=== PATIENT | female | born 1970 | race Caucasian/White ===

== ENCOUNTER 2016-12-06 15:59 | Observation (INO) ==
--- NOTE | 2016-12-06 16:35 | Emergency Department Note ---
Disposition Clinical Impression: Obesity, Right lower quadrant abdominal pain, Gallbladder sludge, Vomiting, Abnormal liver function tests, Ovarian cyst, Lumbar disc disease, Chronic back pain Disposition: Admitted As Inpatient Referrals: Juana Toro MD [Primary Care Provider] - Forms: Work/School Release, ED Satisfaction Letter General Adult HPI - General Chief complaint: ED Abdominal Pain Stated complaint: abd pain Time Seen by Provider: 12/06/16 16:14 Source: patient Limitations: no limitations - History of Present Illness HPI Narrative: 46-year-old female reports emergency department from her primary care physician' s office, there is concern for right lower abdominal pain. The patient is recently been evaluated for gallbladder disease and had testing suggestive of gallbladder sludge without cholecystitis or obstructive pathology. The patient has been having worsening abdominal pain for the last few weeks. On the right side and now lower right side. There was concern for appendicitis so the patient was sent to the ED. There is no history of bulging in the abdomen vaginal discharge or bleeding. The patient is status post hysterectomy. There is no history of april jaundice but she reports her liver function tests were abnormal on her primary care physician's testing. There is no history of flank pain or urinary symptomatology no blood in the urine or previous kidney stones. No chest pain or shortness of breath. There is no history of trauma or rash. Right lower abdominal pain is reported. The patient describes recurrent episodes of nonbloody emesis. She is not known to be anticoagulated. No diarrhea. Last bowel movement within 24 hours no blood. Pain Scale: 10 - Related Data Home Medications Medication Instructions Recorded Confirmed RX: Lisinopril/Hydrochlorothiazide 1 each PO DAILY 05/09/15 12/06/16 [Zestoretic 20-25 mg Tablet] BuPROPion XL (24 HR) [Wellbutrin 150 mg PO DAILY 12/06/16 12/06/16 XL] Diclofenac Sodium [Voltaren] 1 appl TP QID PRN 12/06/16 12/06/16 Gabapentin [Neurontin] 1,200 mg PO QID PRN 12/06/16 12/06/16 Levothyroxine [Synthroid] 150 mcg PO QAM 12/06/16 12/06/16 RX: Cyclobenzaprine HCl 5 mg PO TID PRN 12/06/16 12/06/16 Zolpidem Tartrate [Ambien Cr] 12.5 mg PO HS 12/06/16 12/06/16 Allergies Allergy/AdvReac Type Severity Reaction Status Date / Time hydrocodone AdvReac Vomiting Verified 04/27/15 12:22 All systems ED: reviewed and negative except as stated. Past Medical History - Past Medical History Medical history: Reports: GERD, hypertension, thyroid disease Surgical history: Reports: hysterectomy, thyroidectomy, other Psychiatric history: Reports: depression - Social History Smoking Status: Never smoker Smokeless Tobacco Status: No Alcohol use: Reports: none Drug use: Reports: none Physical Exam - General Limitations: no limitations General appearance: alert, anxious - Head Head exam: atraumatic, normocephalic, normal inspection - Eye Eye exam: Present: normal appearance, PERRL, EOMI. Absent: scleral icterus, conjunctival injection, miosis, mydriasis - ENT ENT exam: normal exam, normal oropharynx, mucous membranes moist, TM's normal bilaterally, normal external ear exam - Neck Neck exam: Present: normal inspection, full ROM, trachea midline. Absent: tenderness - Chest Chest inspection: Present: symmetric chest wall rise. Absent: tenderness - Respiratory Respiratory exam: Present: normal lung sounds bilaterally. Absent: respiratory distress, wheezes, accessory muscle use, prolonged expiratory phase - Cardiovascular Cardiovascular exam: Present: regular rate, normal rhythm, normal heart sounds - Abdominal Exam Abdominal exam: Present: soft, tenderness, normal bowel sounds, tenderness at McBurney's Point. Absent: distention, guarding, rebound, rigidity, trauma, psoas sign, obturator sign, Monge's sign, Rovsing's sign, ascites, pulsatile mass, hernia - Extremities Exam Extremities exam: Present: normal inspection, full ROM, normal capillary refill. Absent: tenderness, pedal edema, joint swelling, calf tenderness - Expanded Lower Extremity Exam Lower leg exam: Absent: Homans' sign Neurovascular/Tendon exam: Present: normal capillary refill. Absent: motor deficit, sensory deficit, tendon deficit, extremity cold to touch, pallor - Back Exam Back exam: Present: normal inspection, full ROM. Absent: tenderness, CVA tenderness (R), CVA tenderness (L), vertebral tenderness - Neurological Exam Neurological exam: Present: alert, oriented X3, CN II-XII intact. Absent: motor sensory deficit - Psychiatric Psychiatric exam: Present: normal affect, anxious - Skin Skin exam: Present: warm, dry, intact, normal color. Absent: rash, cyanosis, diaphoresis, erythema, pallor, mottled Course Vital Signs Temperature 98.8 F 12/06/16 16:03 Pulse Rate 98 12/06/16 16:03 Respiratory Rate 18 12/06/16 16:03 Blood Pressure 121/69 12/06/16 16:03 O2 Sat by Pulse Oximetry 98 12/06/16 16:03 Temperature 98.8 F 12/06/16 16:03 Pulse Rate 79 12/06/16 20:55 Respiratory Rate 18 12/06/16 20:55 Blood Pressure 127/61 12/06/16 20:55 O2 Sat by Pulse Oximetry 98 12/06/16 20:55 Oxygen Delivery Oxygen Delivery Room Air Medical Decision Making - MDM Narrative Medical decision making narrative: The patient has had abdominal pain in the right side of her abdomen persistently for a few months, she has had her gallbladder evaluated which does demonstrate sludge in the gallbladder. Her primary care physician noted abnormal liver function tests from blood work done this last Friday. The patient's AST and ALT were elevated in the 80s and 90s. On today's testing the patient's ALT and AST are more elevated. Acute hepatitis panel was drawn which was negative. Acetaminophen level negative. The patient seems to have developed right lower abdominal pain which as been present since Friday or Friday. There is no evidence of acute appendicitis or other acute process demonstrated on CT scan. She is afebrile and her white count is normal. She described feeling hot and recurrent episodes of recurrent nonbloody emesis. I reviewed the case with the patient and her , they are very uncomfortable going home based on the patient's recurrent pain and apparent worsening with vomiting. IV access was established and pain control medications were given. IV fluid was also ordered. Based on the patient's recurrent pain, reports of vomiting, elevated liver function tests, gallbladder sludge on ultrasound, I suspect the patient may be experiencing biliary colic and her pain is poorly controlled on Neurontin. She reports she does not tolerate Percocet or Vicodin well. She feels that she needs pain control and is uncomfortable with discharge. I discussed the case with the hospitalist who has accepted the patient to their care. The patient be admitted for recurrent vomiting, uncontrolled abdominal pain, gallbladder disease, and right lower abdominal pain. Secondary surgical consult at the hospitalist's discretion. No surgical consult requested per the admitting service at this time. - Lab Data Lab results reviewed: Yes I reviewed the patient's lab results. Result diagrams: 12/06/16 16:45 12/06/16 16:45 Lab Results 12/06/16 12/06/16 12/06/16 Range/Units 16:45 16:45 16:45 WBC 6.7 (4.3-11.1) K/mcL RBC 4.53 (3.82-4.97) M/mcL Hgb 12.9 (11.5-15.4) g/dL Hct 39.0 (35.3-44.9) % MCV 86.1 (83.0-100.0) fL MCH 28.5 (28.0-33.3) pg MCHC 33.1 (31.6-35.5) g/dL RDW 14.6 H (11.5-14.5) % Plt Count 187 (140-400) K/mcL MPV 10.4 (9.4-12.4) fL Immature Gran % 2.1 (0-4) % Seg Neutrophils % 31.4 % Lymphocytes % 58.9 % Monocytes % 4.0 % Eosinophils % 2.4 % Basophils % 1.2 % Neutrophils # 2.1 (1.6-8.9) K/mcL Lymphocytes # 4.0 (0.6-4.6) K/mcL Monocytes # 0.3 (0.0-1.3) K/mcL Eosinophils # 0.2 (0.0-0.6) K/mcL Basophils # 0.1 (0.0-0.2) K/mcL PT (9.4-12.1) Seconds INR APTT (26.0-36.0) Seconds Sodium 138 (136-145) mEq/L Potassium 3.6 (3.5-4.5) mEq/L Chloride 101 (98-109) mEq/L Carbon Dioxide 28 (19-29) mEq/L BUN 9 (7-20) mg/dL Creatinine 0.89 (0.57-1.11) mg/dL Est GFR ( Amer) > 60 (> 60) Est GFR (Non-Af Amer) > 60 (> 60) BUN/Creatinine Ratio 10 (6-26) Glucose 119 H (70-99) mg/dL Calculated Osmolality 286 (280-300) Lactic Acid 1.2 (0.5-2.2) mmol/L Calcium 8.8 (8.6-10.8) mg/dL Total Bilirubin 0.8 (0.2-1.2) mg/dL Direct Bilirubin 0.4 (0.0-0.5) mg/dL Indirect Bilirubin 0.4 (0.0-1.2) mg/dL AST 159 H (5-34) Units/L ALT 194 H (0-55) Units/L Alkaline Phosphatase 110 (38-126) Units/L C-Reactive Protein 33 H (Less than 5) mg/L Serum Total Protein 6.5 (6.0-8.3) g/dL Albumin 3.3 L (3.5-5.0) g/dL Globulin 3.2 (2.4-3.5) g/dL Albumin/Globulin Ratio 1.0 L (1.1-2.2) Lipase 46 (8-78) Units/L Urine Color (Yellow) Urine Clarity (Clear) Urine pH (5.0-8.0) pH Units Ur Specific [place] (1.010-1.025) Urine Protein (Neg-Trace) mg/dL Urine Glucose (UA) (Normal) mg/dL Urine Ketones (Negative) mg/dL Urine Blood (Negative) Urine Nitrite (Negative) Urine Bilirubin (Negative) Urine Urobilinogen (Normal) mg/dL Ur Leukocyte Esterase (Negative) Urine Microscopic RBC (0-3) per hpf Urine Microscopic WBC (0-3) per hpf Ur Squamous Epith Cells (None-Few) per lpf Urine Bacteria (None-Few) per hpf Hyaline Casts (None-Few) per lpf Ur Culture Indicated? (NO) Acetaminophen < 1.0 L (10-30) mcg/mL Hepatitis A IgM Ab (Nonreactive) Hep Bs Antigen (Nonreactive) Hep B Core IgM Ab (Nonreactive) Hepatitis C Ab Screen (Nonreactive) 12/06/16 12/06/16 12/06/16 Range/Units 16:45 16:45 18:06 WBC (4.3-11.1) K/mcL RBC (3.82-4.97) M/mcL Hgb (11.5-15.4) g/dL Hct (35.3-44.9) % MCV (83.0-100.0) fL MCH (28.0-33.3) pg MCHC (31.6-35.5) g/dL RDW (11.5-14.5) % Plt Count (140-400) K/mcL MPV (9.4-12.4) fL Immature Gran % (0-4) % Seg Neutrophils % % Lymphocytes % % Monocytes % % Eosinophils % % Basophils % % Neutrophils # (1.6-8.9) K/mcL Lymphocytes # (0.6-4.6) K/mcL Monocytes # (0.0-1.3) K/mcL Eosinophils # (0.0-0.6) K/mcL Basophils # (0.0-0.2) K/mcL PT 12.4 H (9.4-12.1) Seconds INR 1.1 APTT 30.9 (26.0-36.0) Seconds Sodium (136-145) mEq/L Potassium (3.5-4.5) mEq/L Chloride (98-109) mEq/L Carbon Dioxide (19-29) mEq/L BUN (7-20) mg/dL Creatinine (0.57-1.11) mg/dL Est GFR ( Amer) (> 60) Est GFR (Non-Af Amer) (> 60) BUN/Creatinine Ratio (6-26) Glucose (70-99) mg/dL Calculated Osmolality (280-300) Lactic Acid (0.5-2.2) mmol/L Calcium (8.6-10.8) mg/dL Total Bilirubin (0.2-1.2) mg/dL Direct Bilirubin (0.0-0.5) mg/dL Indirect Bilirubin (0.0-1.2) mg/dL AST (5-34) Units/L ALT (0-55) Units/L Alkaline Phosphatase (38-126) Units/L C-Reactive Protein (Less than 5) mg/L Serum Total Protein (6.0-8.3) g/dL Albumin (3.5-5.0) g/dL Globulin (2.4-3.5) g/dL Albumin/Globulin Ratio (1.1-2.2) Lipase (8-78) Units/L Urine Color Yellow (Yellow) Urine Clarity Cloudy A (Clear) Urine pH 6.0 (5.0-8.0) pH Units Ur Specific [place] 1.022 (1.010-1.025) Urine Protein Negative (Neg-Trace) mg/dL Urine Glucose (UA) Normal (Normal) mg/dL Urine Ketones Negative (Negative) mg/dL Urine Blood Negative (Negative) Urine Nitrite Negative (Negative) Urine Bilirubin Negative (Negative) Urine Urobilinogen Normal (Normal) mg/dL Ur Leukocyte Esterase Negative (Negative) Urine Microscopic RBC 0-3 (0-3) per hpf Urine Microscopic WBC 0-3 (0-3) per hpf Ur Squamous Epith Cells Many H (None-Few) per lpf Urine Bacteria None Seen (None-Few) per hpf Hyaline Casts None Seen (None-Few) per lpf Ur Culture Indicated? NO (NO) Acetaminophen (10-30) mcg/mL Hepatitis A IgM Ab Nonreactive (Nonreactive) Hep Bs Antigen Nonreactive (Nonreactive) Hep B Core IgM Ab Nonreactive (Nonreactive) Hepatitis C Ab Screen Nonreactive (Nonreactive) - Radiology Data Radiology results reviewed: Yes I reviewed the patient's radiology results.
[2016-12-06] MEDS ORDERED: *HR* HYDROmorphone (PF) 1 MG/ML SYRINGE IVP ONE ×2 (16:43→21:23)
[2016-12-06] MEDS ORDERED: Ondansetron 4 MG/2 ML VIAL IVP ONE (16:43)
[2016-12-06] MEDS ORDERED: 0.9 % Sodium Chloride 1,000 ML IVC ONE (16:43)
[2016-12-06 17:07] LABS: Alanine Aminotransferase 194 Units/L (0-55); Albumin 3.3 g/dL (3.5-5.0); Alkaline Phosphatase 110 Units/L (38-126); Aspartate Amino Transferase 159 Units/L (5-34); BUN/Creatinine Ratio 10 (6-26); Basophils # 0.1 K/mcL (0.0-0.2); Basophils % 1.2 %; Bilirubin,Direct 0.4 mg/dL (0.0-0.5); Bilirubin,Indirect 0.4 mg/dL (0.0-1.2); Bilirubin,Total 0.8 mg/dL (0.2-1.2); Blood Urea Nitrogen 9 mg/dL (7-20); C-Reactive Protein 33 mg/L (Less than 5); Calcium 8.8 mg/dL (8.6-10.8); Carbon Dioxide 28 mEq/L (19-29); Chloride 101 mEq/L (98-109); Eosinophils # 0.2 K/mcL (0.0-0.6); Eosinophils % 2.4 %; Globulin 3.2 g/dL (2.4-3.5); Glucose 119 mg/dL (70-99); Hemoglobin 12.9 g/dL (11.5-15.4); Immature Granulocytes % 2.1 % (0-4); Lipase 46 Units/L (8-78); Lymphocytes % 58.9 %; Mean Corpuscular HGB Conc 33.1 g/dL (31.6-35.5); Mean Corpuscular Hemoglobin 28.5 pg (28.0-33.3); Mean Corpuscular Volume 86.1 fL (83.0-100.0); Mean Platelet Volume 10.4 fL (9.4-12.4); Monocytes # 0.3 K/mcL (0.0-1.3); Neutrophils # 2.1 K/mcL (1.6-8.9); Osmolality,Calculated 286 (280-300); Platelet Count 187 K/mcL (140-400); Potassium 3.6 mEq/L (3.5-4.5); Red Blood Count 4.53 M/mcL (3.82-4.97); Red Cell Distribution Width 14.6 % (11.5-14.5); Segmented Neutrophils % 31.4 %; Sodium 138 mEq/L (136-145); Total Protein 6.5 g/dL (6.0-8.3); eGFR For African Americans > 60 (> 60); eGFR For Non-African Americans > 60 (> 60)
[2016-12-06 17:12] LABS: INR 1.1; Prothrombin Time 12.4 Seconds (9.4-12.1)
[2016-12-06 17:15] LABS: Activated Partial Thrombo Time 30.9 Seconds (26.0-36.0)
[2016-12-06 18:11] LABS: Bilirubin,Urine Negative (Negative); Blood,Urine Negative (Negative); Clarity,Urine Cloudy (Clear); Color,Urine Yellow (Yellow); Glucose,Urine (UA) Normal (Normal); Ketones,Urine Negative (Negative); Leukocyte Esterase,Urine Negative (Negative); Nitrite,Urine Negative (Negative); Protein,Urine Negative (Neg-Trace); Specific Gravity,Urine 1.022 (1.010-1.025); Urobilinogen,Urine Normal (Normal)
[2016-12-06 18:14] LABS: Bacteria,Urine None Seen per hpf (None-Few); Hyaline Casts,Urine None Seen per lpf (None-Few); RBC,Urine 0-3 per hpf (0-3); Squamous Epithelial Cell,Urine Many per lpf (None-Few); WBC,Urine 0-3 per hpf (0-3)
[2016-12-06 18:55] LABS: Acetaminophen < 1.0 mcg/mL (10-30)
[2016-12-06 19:20] LABS: Hepatitis A Antibody IgM Nonreactive (Nonreactive); Hepatitis B Core IgM Nonreactive (Nonreactive); Hepatitis B Surface Antigen Nonreactive (Nonreactive); Hepatitis C Virus Antibody Nonreactive (Nonreactive)
--- NOTE | 2016-12-06 22:07 | Internal Med History&Physical ---
Date of Encounter: 12/06/16 Time of Encounter: 22:07 Assessment and Plan (1) Intractable abdominal pain Current visit: Yes Status: Acute patient presents with worrisome symptoms but history and physical exam as well as CT report does not suggest appendicitis, she still however has pain yet unexplained, it could be diverticulitis vs ovarian cysts etc, we will admit for supportive management with IVF, IV pain medications, bowel rest,, should her symptoms persist we will get GI to weigh in otherwise she will benefit from GI followup as outpatient upon discharge home (2) Abnormal liver function tests Current visit: Yes Status: Acute related to fatty liver, she has been advised on weight loss and dietary modification, (3) Fatty liver Current visit: Yes Status: Chronic from obesity, she has been counseled on weight loss and diet (4) Chronic back pain Current visit: Yes Status: Chronic this is from trauma she experienced some years ago and has undergone 3 back surgeries so far, we will manage conservatively Qualifiers: Back pain location: low back pain Back pain laterality: bilateral Sciatica presence: without sciatica Qualified Code(s): M54.5 - Low back pain; G89.29 - Other chronic pain (5) Morbid obesity with BMI of 45.0-49.9, adult Current visit: Yes Status: Chronic counseled on weight loss and diet Internal Medicine - H&P: HPI Chief complaint: right lower abdominal pain Admitted From: Emergency Dept Plans for Post Hospital Care: Home History of present illness: Ms. Drake is a 46 year old female with a history of GERD and morbid obesity who comes in as a referral from her PCP for intractable right lower abdominal pain. She reports that she has had intermittent abdominal pain ongoing for about 2 months now but for the past one week it has gotten worse. The pain is located in the right lower quadrant, it is dull achy and constant with episodes of sharp pain that is 10/10 in severity that she has to bend over due to its severity. She reports an associated nausea and vomiting and inability to eat. Her appetite however has been normal. She is just not keeping food down. She also has subjective fever and chills. She reached out to her PCP who ordered LFT 's which were elevated and, she reviewed that and in addition to her right lower quadrant pain she was sent here for assessment regarding acute appendicitis. Her CT of abdomen was unremarkable for appendicitis but reported fatty liver. Her symptoms are uncontrolled so she is being admitted for control. She currently denies diarrhea but had loose stools some days ago. She had colonoscopy a couple of years ago and there was no mention of any concerning findings. Past Med Surg Social Fam HX - Past Medical History Source: patient, old records reviewed Medical history: GERD, hypertension, thyroid disease Psychiatric history: depression - Past Surgical History Surgical History: hysterectomy, thyroidectomy, other (L5-S1 laminectomy with fusion, she reports 3 back surgeries, thyroidectomy, shoulder surgery, left breast biopsy, lumpectomy, ) - Social History Smoking Status: Never smoker Smokeless Tobacco Status: No Alcohol use: none Drug use: none - Family History Mother Living Status: Still Living Hx Family Cardiac Disorders: Yes Father Living Status: Still Living Hx Family Cardiac Disorders: Yes Hx Family Cancer: Yes Hx Family Endocrine Disorder: Yes (dm) - Additional Family History Additional family history: father has cancer, heart problems, and DM, mother has heart problems, no family history of GI problems Internal Medicine - H&P: Meds Lisinopril/Hydrochlorothiazide [Zestoretic 20-25 mg Tablet] 1 each PO DAILY [History] BuPROPion XL (24 HR) [Wellbutrin XL] 150 mg PO DAILY 12/06/16 [History] Cyclobenzaprine HCl 5 mg PO TID PRN 12/06/16 [History] Diclofenac Sodium [Voltaren] 1 appl TP QID PRN 12/06/16 [History] Gabapentin [Neurontin] 1,200 mg PO QID PRN 12/06/16 [History] Levothyroxine [Synthroid] 150 mcg PO QAM 12/06/16 [History] Zolpidem Tartrate [Ambien Cr] 12.5 mg PO HS 12/06/16 [History] Allergies hydrocodone Adverse Reaction (Verified 04/27/15 12:22) Vomiting All Systems PM: A 10-system review of systems was performed and is negative for pertinent findings except as documented above in the HPI. - Constitutional Vitals: Temp Pulse Resp BP Pulse Ox 98.8 F 79 18 125/55 98 12/06/16 16:03 12/06/16 20:55 12/06/16 21:51 12/06/16 21:51 12/06/16 20:55 PHYSICAL EXAMINATION: GENERAL: Adult female, lying in bed in mild pain, Alert, morbidly obese looking HEENT: NC/AT, EOMI, PERRLA, anicteric sclera, normal conjunctiva, supple, clear nares, dry mucous membranes, clear oropharynx, RESP: lungs are clear to auscultation bilaterally, good AE bilaterally, No crackles or wheeze CARDIO: Normal hearts sounds; S1 and 2, RRR with no murmurs, no JVD, no ankle edema GI: Soft, full, diffusely tender abdomen but worse in the right lower quadrant with no guarding, no organomegaly felt, normal bowel sounds heard MUSCULOSKELETAL: grossly normal movements bilaterally, no deformities noted, no calf tenderness NEUROLOGIC: CN 2-12 intact grossly. No motor/sensory deficit appreciated, PSYCHIATRY: AAO x 3. Mood is fair, SKIN: no skin rash noted but face is flushed Internal Med - H&P Results - Labs CBC & Chem 7: 12/07/16 03:46 12/07/16 03:46 - Diagnostic Studies CT scan - abdomen Status: image reviewed by me
[2016-12-06] MEDS ORDERED: Ondansetron 4 MG/2 ML VIAL IVP PRN (22:36)
[2016-12-06] MEDS ORDERED: Naloxone 0.4 MG/ML INJ IVP PRN (22:36)
[2016-12-06] MEDS: Ringers Solution, Lactated 1,000 ML IVC SCH (23:28)
[2016-12-07] MEDS: Gabapentin 400 MG CAPSULE PO PRN ×3 (00:15→17:12)
[2016-12-07 04:01] LABS: Basophils # 0.1 K/mcL (0.0-0.2); Basophils % 0.8 %; Eosinophils # 0.2 K/mcL (0.0-0.6); Eosinophils % 2.4 %; Hematocrit 35.5 % (35.3-44.9); Hemoglobin 11.4 g/dL (11.5-15.4); Immature Granulocytes % 2.4 % (0-4); Lymphocytes # 4.4 K/mcL (0.6-4.6); Lymphocytes % 60.8 %; Mean Corpuscular HGB Conc 32.1 g/dL (31.6-35.5); Mean Corpuscular Hemoglobin 27.5 pg (28.0-33.3); Mean Corpuscular Volume 85.5 fL (83.0-100.0); Mean Platelet Volume 10.2 fL (9.4-12.4); Monocytes # 0.3 K/mcL (0.0-1.3); Monocytes % 3.5 %; Neutrophils # 2.2 K/mcL (1.6-8.9); Platelet Count 159 K/mcL (140-400); Red Blood Count 4.15 M/mcL (3.82-4.97); Red Cell Distribution Width 14.7 % (11.5-14.5); Segmented Neutrophils % 30.1 %
[2016-12-07 04:19] LABS: BUN/Creatinine Ratio 11 (6-26); Blood Urea Nitrogen 9 mg/dL (7-20); Carbon Dioxide 28 mEq/L (19-29); Chloride 101 mEq/L (98-109); Glucose 100 mg/dL (70-99); Osmolality,Calculated 279 (280-300); Potassium 3.4 mEq/L (3.5-4.5); Sodium 135 mEq/L (136-145); eGFR For African Americans > 60 (> 60); eGFR For Non-African Americans > 60 (> 60)
[2016-12-07 04:20] LABS: Alanine Aminotransferase 178 Units/L (0-55); Albumin 2.8 g/dL (3.5-5.0); Albumin/Globulin Ratio 0.9 (1.1-2.2); Alkaline Phosphatase 100 Units/L (38-126); Aspartate Amino Transferase 141 Units/L (5-34); Bilirubin,Total 1.1 mg/dL (0.2-1.2); Calcium 8.2 mg/dL (8.6-10.8); Magnesium 1.8 mg/dL (1.6-2.6); Phosphorous 2.7 mg/dL (2.3-4.7); Total Protein 5.8 g/dL (6.0-8.3)
[2016-12-07 04:28] LABS: Large Platelets Present (Not Present); Platelet Estimate Normal (Normal); Reactive Lymphocytes Present (Not Present)
[2016-12-07] MEDS: *HR* Morphine 2 MG/ML SYRINGE IVP PRN ×5 (05:52→23:39)
[2016-12-07] MEDS: Ringers Solution, Lactated 1,000 ML IVC SCH (08:17)
[2016-12-07] MEDS: BuPROPion XL (24 HR) 150 MG TABLET PO SCH (08:17)
[2016-12-07] MEDS ORDERED: *HR* Morphine 2 MG/ML SYRINGE IVP PRN (17:01)
--- NOTE | 2016-12-07 17:06 | Internal Med Progress Note ---
Date of Encounter: 12/07/16 Time of Encounter: 10:45 - Assessment and plan (1) Right lower quadrant abdominal pain Current Visit: Yes Status: Acute Assessment and plan: Patient was admitted for intractable abdominal pain. Pain is located right lower quadrant with associated nausea and vomiting. Has had multiple tests run on abdominal pain over the last 2 months. She said pain was worse since why she presented to the emergency department. Patient had CT abdomen on admission. No acute abnormalities and incidental findings that require no follow-up. Incidental findings include moderate hepatomegaly, diffuse hepatic steatosis, left ovarian cyst measuring 3 cm, mildly enlarged mesenteric lymph nodes likely reactive. There is also noted a posterior fusion L5-S1 without complication. Appendix were found to be normal, as was the right ovary. Patient had HIDA scan done in October that showed no bladder ejection fraction 92 % no findings of acute or chronic cholecystitis. She had an abdominal right upper quadrant ultrasound done in October but also showed sludge in the gallbladder and diffuse fatty infiltration of the liver. I spoke with Dr. Cortés who agrees that findings are not acute at this time. I will continue to hydrate the patient and provide pain control and most likely discharge patient in the morning. (2) Obesity Current Visit: Yes Status: Chronic Assessment and plan: Chronic. Lifestyle changes. She denied did discuss weight loss to help with fatty liver. She verbalized understanding. Qualifiers: Obesity type: due to excess calories Obesity severity: morbid Qualified Code(s): E66.01 - Morbid (severe) obesity due to excess calories (3) Gallbladder sludge Current Visit: Yes Status: Acute Assessment and plan: Per ultrasound in October,. (4) Abnormal liver function tests Current Visit: Yes Status: Acute Assessment and plan: Transaminases are elevated. With continued hydration they are decreasing. Lipase is within normal limits. (5) Ovarian cyst Current Visit: Yes Status: Acute Assessment and plan: 3 cm ovarian cyst left ovary found on CAT scan last night needs no follow-up. Qualifiers: Laterality: left Qualified Code(s): N83.202 - Unspecified ovarian cyst, left side - Subjective Interval history: Patient resting quietly and darkened room, has been on Caltrate and room. Patient reports right lower quadrant pain. Patient has had abdominal pain for several months and has multiple tests done. She was admitted with concerning symptoms for appendicitis, however CT does not show appendicitis, patient has no uterus, she does have a 3 cm left ovarian cyst but pain is right lower quadrant. She is being treated with IV fluids, IV pain medication, clear liquid diets. I did briefly speak with Dr. Cortés on the phone regarding this patient her situation. He recommends that she follow-up outpatient in the office. I will continue to hydrate and treat pain symptoms overnight. I discussed patient going home in the morning she is fine with that. - Constitutional Vitals: Temp Pulse Resp BP Pulse Ox 99.0 F 75 16 105/72 95 12/07/16 15:26 12/07/16 15:26 12/07/16 15:26 12/07/16 15:26 12/07/16 15:26 General appearance: Present: cooperative, morbidly obese, pleasant, answers questions appropriately - Head Head exam: Present: normal inspection - Eye Eye exam: Present: normal appearance, conjuntiva pink - ENT ENT exam: Present: mucous membranes moist, normal exam - Neck Neck exam general surgery: Present: normal inspection. Absent: lymphadenopathy , tenderness - Respiratory Respiratory exam: Present: CTAB. Absent: chest wall tenderness, rales, respiratory distress, rhonchi, stridor, wheezes - Cardiovascular Cardiovascular exam: Present: RRR, +S1, +S2. Absent: diastolic murmur, systolic murmur - GI/Abdominal GI/Abdominal exam: Present: firm, hyperactive bowel sounds, soft, tenderness. Absent: distended, hepatomegaly, pulsatile mass - Extremities Exam Extremities exam: Present: normal capillary refill, normal inspection, pedal edema, warm, radial pulses palpable and symetrical. Absent: tenderness - Back Exam Back exam: Absent: CVA tenderness (L), CVA tenderness (R) - Neurological Exam Neurological exam: Present: alert, oriented X3, no focal deficits, strengths equal and symetr throughout. Absent: facial droop, speech deficit Internal Medicine: Result - Labs CBC & Chem 7: 12/07/16 03:46 12/07/16 03:46 Labs: Short CBC 12/07/16 Range/Units 03:46 WBC 7.2 (4.3-11.1) K/mcL Hgb 11.4 L D (11.5-15.4) g/dL Hct 35.5 (35.3-44.9) % Plt Count 159 (140-400) K/mcL Neutrophils # 2.2 (1.6-8.9) K/mcL BMP 12/07/16 03:46 Sodium 135 L Potassium 3.4 L Chloride 101 Carbon Dioxide 28 BUN 9 Creatinine 0.85 Glucose 100 H Calcium 8.2 L Liver Function 12/07/16 Range/Units 03:46 Total Bilirubin 1.1 (0.2-1.2) mg/dL AST 141 H (5-34) Units/L ALT 178 H (0-55) Units/L Alkaline Phosphatase 100 (38-126) Units/L Albumin 2.8 L (3.5-5.0) g/dL - ABG Interpretation ABG results: PT/INR, D-dimer PT 12.4 Seconds (9.4-12.1) H 12/06/16 16:45 Consult Discharge Plan - Plan Referrals: Juana Toro MD [Primary Care Provider] -
--- NOTE | 2016-12-07 23:07 | Event Note ---
Date of Encounter: 12/07/16 Time of Encounter: 23:05 Patient spiked a fever of 102.9. She is here for gallbladder disease and ovarian cyst. I have ordered blood cultures, oral acetaminophen. We will start antibiotic treatment with Zosyn.
[2016-12-07] MEDS: 0.9 % Sodium Chloride 1,000 ML IVC SCH (23:08)
[2016-12-07] MEDS: Acetaminophen 325 MG TABLET PO PRN (23:13)
[2016-12-07] MEDS: Piperacillin/Tazobactam 3.375 GM in D5% in Water (Mini-Bag+) 100 ML IVPB SCH (23:39)
[2016-12-08 03:52] LABS: Basophils # 0.1 K/mcL (0.0-0.2); Basophils % 0.7 %; Eosinophils # 0.2 K/mcL (0.0-0.6); Hematocrit 37.6 % (35.3-44.9); Hemoglobin 12.3 g/dL (11.5-15.4); Immature Granulocytes % 4.5 % (0-4); Lymphocytes % 59.1 %; Mean Corpuscular HGB Conc 32.7 g/dL (31.6-35.5); Mean Corpuscular Hemoglobin 28.3 pg (28.0-33.3); Mean Corpuscular Volume 86.4 fL (83.0-100.0); Mean Platelet Volume 10.3 fL (9.4-12.4); Monocytes # 0.2 K/mcL (0.0-1.3); Monocytes % 2.9 %; Neutrophils # 2.3 K/mcL (1.6-8.9); Platelet Count 156 K/mcL (140-400); Red Blood Count 4.35 M/mcL (3.82-4.97); Segmented Neutrophils % 30.8 %
[2016-12-08 03:59] LABS: Lymphocytes # 4.4 K/mcL (0.6-4.6)
[2016-12-08 04:07] LABS: Alanine Aminotransferase 204 Units/L (0-55); Aspartate Amino Transferase 172 Units/L (5-34); BUN/Creatinine Ratio 10 (6-26); Blood Urea Nitrogen 9 mg/dL (7-20); Calcium 8.6 mg/dL (8.6-10.8); Carbon Dioxide 27 mEq/L (19-29); Chloride 102 mEq/L (98-109); Glucose 102 mg/dL (70-99); Osmolality,Calculated 283 (280-300); Potassium 3.6 mEq/L (3.5-4.5); Sodium 137 mEq/L (136-145); eGFR For African Americans > 60 (> 60); eGFR For Non-African Americans > 60 (> 60)
[2016-12-08 04:19] LABS: Platelet Estimate Normal (Normal); Reactive Lymphocytes Present (Not Present)
[2016-12-08] MEDS: Piperacillin/Tazobactam 3.375 GM in D5% in Water (Mini-Bag+) 100 ML IVPB SCH ×2 (08:22→15:03)
[2016-12-08] MEDS: *HR* Morphine 2 MG/ML SYRINGE IVP PRN ×4 (08:22→22:11)
[2016-12-08] MEDS: BuPROPion XL (24 HR) 150 MG TABLET PO SCH (08:24)
[2016-12-08] MEDS: Gabapentin 400 MG CAPSULE PO PRN ×3 (08:24→21:00)
[2016-12-08 09:47] LABS: Chol/HDL Ratio 6.8 (0-4.9); Cholesterol 142 mg/dL (< 200); HDL Cholesterol 21 mg/dL (40-59)
[2016-12-08 11:13] LABS: % Iron Saturation 18 % (15-50); Iron 44 mcg/dL (50-170); Transferrin 174 mg/dL (180-382)
[2016-12-08 11:25] LABS: LDL Cholesterol,Calculated 72 mg/dL (0-99); Triglycerides 246 mg/dL (< 150)
--- NOTE | 2016-12-08 14:16 | Internal Med Progress Note ---
Date of Encounter: 12/08/16 Time of Encounter: 09:35 - Assessment and plan (1) Right lower quadrant abdominal pain Current Visit: Yes Status: Acute Assessment and plan: Patient continues to have right lower quadrant pain and rates it 10 out of 10. She says she has not had a bowel movement due to anorexia and being on a clear liquid diet. Her abdomen is soft and tender in right lower and right mid abdomen. I have ordered an abdominal ultrasound and a urine. Nurse reports today that year and is pink tinged. Patient has had a hysterectomy so we will reevaluate the urine. Initial urine was negative. Ultrasound will not be done on Friday. I also have consulted GI. Continue IV pain medication Continue IV hydration Clear liquid diet Anti-emetics as needed GI consult Abdominal ultrasound and urine pending (2) Obesity Current Visit: Yes Status: Chronic Assessment and plan: Chronic. Lifestyle changes. Qualifiers: Obesity type: due to excess calories Obesity severity: morbid Qualified Code(s): E66.01 - Morbid (severe) obesity due to excess calories (3) Gallbladder sludge Current Visit: Yes Status: Acute Assessment and plan: Per ultrasound in October,. (4) Abnormal liver function tests Current Visit: Yes Status: Acute Assessment and plan: Transaminases are elevated again today. AST 174, ALP 204. Patient does have fatty liver per right upper quadrant ultrasound in October,. (5) Ovarian cyst Current Visit: Yes Status: Acute Assessment and plan: 3 cm ovarian cyst left ovary found on CAT scan last night needs no follow-up. Qualifiers: Laterality: left Qualified Code(s): N83.202 - Unspecified ovarian cyst, left side (6) NAFLD (nonalcoholic fatty liver disease) Current Visit: Yes Status: Acute Assessment and plan: Right upper quadrant ultrasound done October 30 showed diffuse fatty liver infiltration. Transaminases are elevated, increased overnight. CT abdomen on December 06 showed moderate hepatomegaly and diffuse hepatic steatosis. Patient had a HIDA scan on November 08 that showed no findings of acute or chronic cholecystitis. She did have sludge. Today patient has right upper quadrant tenderness. Patient denies excessive alcohol intake. She says she normally only has drinks every 2 years when she and her travel outside the country. She denies a periods in her life when she drank excessively. Monitor labs in the a.m. Abdominal ultrasound GI consult (7) Metabolic syndrome Current Visit: Yes Status: Acute Assessment and plan: Patient has central obesity, with triglycerides at 246, HDL cholesterol 21 and fasting blood glucoses greater than 100. I have ordered an A1c for morning. - Time Spent With Patient less than 15 minutes - Subjective Interval history: Patient resting quietly and darkened room, also sleeping in room. Patient continues to report right lower quadrant pain that she said is unchanged from yesterday. She said it is not getting any better. She still getting a clear liquid diet, but did eat part of a sandwich last night with some increased pain to right lower quadrant. She said she just did not feel like eating despite being hungry.. She says she has no appetite. 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 Today she has right upper quadrant tenderness that she did not have yesterday. transaminases have elevated again today. I will put in a GI consult. - Constitutional Vitals: Temp Pulse Resp BP Pulse Ox 99.0 F 80 16 95/59 91 12/08/16 11:36 12/08/16 11:36 12/08/16 11:36 12/08/16 11:36 12/08/16 11:36 General appearance: Present: cooperative, morbidly obese, pleasant, answers questions appropriately Internal Medicine: Result - Labs CBC & Chem 7: 12/08/16 03:36 12/08/16 03:36 Labs: Short CBC 12/08/16 Range/Units 03:36 WBC 7.5 (4.3-11.1) K/mcL Hgb 12.3 (11.5-15.4) g/dL Hct 37.6 (35.3-44.9) % Plt Count 156 (140-400) K/mcL Neutrophils # 2.3 (1.6-8.9) K/mcL BMP 12/08/16 03:36 Sodium 137 Potassium 3.6 Chloride 102 Carbon Dioxide 27 BUN 9 Creatinine 0.90 Glucose 102 H Calcium 8.6 Liver Function 12/08/16 Range/Units 03:36 AST 172 H (5-34) Units/L ALT 204 H (0-55) Units/L - ABG Interpretation ABG results: PT/INR, D-dimer PT 12.4 Seconds (9.4-12.1) H 12/06/16 16:45 Consult Discharge Plan - Plan Referrals: Juana Toro MD [Primary Care Provider] -
[2016-12-08 15:10] LABS: Bilirubin,Urine Negative (Negative); Blood,Urine Negative (Negative); Clarity,Urine Clear (Clear); Color,Urine Yellow (Yellow); Glucose,Urine (UA) Normal (Normal); Ketones,Urine Negative (Negative); Leukocyte Esterase,Urine Negative (Negative); Nitrite,Urine Negative (Negative); PH,Urine 6.5 pH Units (5.0-8.0); Protein,Urine Negative (Neg-Trace); Specific Gravity,Urine 1.018 (1.010-1.025)
[2016-12-08] MEDS: 0.9 % Sodium Chloride 1,000 ML IVC SCH ×2 (19:42→23:21)
[2016-12-08] MEDS ORDERED: 0.9 % Sodium Chloride 1,000 ML IVC ONE (23:55)
[2016-12-09] MEDS: Piperacillin/Tazobactam 3.375 GM in D5% in Water (Mini-Bag+) 100 ML IVPB SCH ×4 (00:04→22:38)
[2016-12-09] MEDS: 0.9 % Sodium Chloride 1,000 ML IVC SCH (00:07)
[2016-12-09] MEDS: Acetaminophen 325 MG TABLET PO PRN (00:12)
[2016-12-09 00:42] LABS: Hematocrit 37.2 % (35.3-44.9); Immature Platelets 4.2 % (1.1-6.1); Mean Corpuscular HGB Conc 32.3 g/dL (31.6-35.5); Mean Corpuscular Volume 86.7 fL (83.0-100.0); Mean Platelet Volume 10.1 fL (9.4-12.4); Platelet Count 175 K/mcL (140-400); Red Blood Count 4.29 M/mcL (3.82-4.97); Red Cell Distribution Width 15.1 % (11.5-14.5)
[2016-12-09 00:57] LABS: Alanine Aminotransferase 191 Units/L (0-55); Albumin 2.8 g/dL (3.5-5.0); Alkaline Phosphatase 113 Units/L (38-126); Aspartate Amino Transferase 145 Units/L (5-34); BUN/Creatinine Ratio 8 (6-26); Bilirubin,Direct 0.9 mg/dL (0.0-0.5); Bilirubin,Indirect 0.4 mg/dL (0.0-1.2); Bilirubin,Total 1.3 mg/dL (0.2-1.2); Blood Urea Nitrogen 8 mg/dL (7-20); Calcium 8.1 mg/dL (8.6-10.8); Carbon Dioxide 27 mEq/L (19-29); Chloride 101 mEq/L (98-109); Globulin 2.9 g/dL (2.4-3.5); Glucose 97 mg/dL (70-99); Osmolality,Calculated 280 (280-300); Potassium 3.5 mEq/L (3.5-4.5); Sodium 136 mEq/L (136-145); Total Protein 5.7 g/dL (6.0-8.3); eGFR For African Americans > 60 (> 60); eGFR For Non-African Americans > 60 (> 60)
[2016-12-09 01:06] LABS: Hemoglobin A1C 5.7 %
[2016-12-09 01:29] LABS: Eosinophils # 0.1 K/mcL (0.0-0.6); Lymphocytes # 3.9 K/mcL (0.6-4.6); Monocytes # 0.4 K/mcL (0.0-1.3); Neutrophils # 2.5 K/mcL (1.6-8.9); Platelet Estimate Normal (Normal); Reactive Lymphocytes Present (Not Present)
[2016-12-09] MEDS ORDERED: 0.9 % Sodium Chloride 1,000 ML IVC ONE (04:58)
[2016-12-09] MEDS: Gabapentin 400 MG CAPSULE PO PRN ×4 (06:53→22:37)
[2016-12-09] MEDS ORDERED: 0.9 % Sodium Chloride 500 ML IVC ONE (07:40)
[2016-12-09] MEDS ORDERED: 0.9 % Sodium Chloride 1,000 ML IVC SCH (07:41)
[2016-12-09] MEDS: BuPROPion XL (24 HR) 150 MG TABLET PO SCH (07:57)
--- NOTE | 2016-12-09 13:48 | Internal Med Progress Note ---
Date of Encounter: 12/09/16 Time of Encounter: 13:46 - Assessment and plan (1) Gallbladder sludge Current Visit: Yes Status: Acute Assessment and plan: patient admitted with intractable RLQ abdominal pain associated with nausea and vomiting; CT abdomen/pelvis showed no acute abnormality; recent RUQ U/S showed gallbladder sludge and biliary scan was normal. Surgery has been consulted due to persistent symptoms associated with fever spikes, bandemia of 10% today with episodes of hypotension overnight, concerning for sepsis; lactic acid noted to be normal; will obtain chest XRay. Patient got multiple IV fluid boluses and BP improved now; Continue IV hydration with pain control with PRN IV Morphine; diet as tolerated for now with PRN antiemetics. Per patient, Surgery plans for cholecystectomy in am, will f/up Vinay note; (2) Abnormal liver function tests Current Visit: Yes Status: Acute Assessment and plan: new diagnosis per patient; CT abdomen shows fatty liver, which may be the likely cause for elevated AST/ALT; viral hepatitis profile negative; lipid panel shows mildly elevated TGs; (3) Hypothyroidism Current Visit: Yes Status: Chronic Assessment and plan: resume Levothyroxine; Qualifiers: Hypothyroidism type: postoperative Qualified Code(s): E89.0 - Postprocedural hypothyroidism (4) Obesity Current Visit: Yes Status: Chronic Qualifiers: Obesity type: due to excess calories Obesity severity: morbid Qualified Code(s): E66.01 - Morbid (severe) obesity due to excess calories (5) Lumbar disc disease Current Visit: Yes Status: Chronic (6) Chronic back pain Current Visit: Yes Status: Chronic Qualifiers: Back pain location: low back pain Back pain laterality: bilateral Sciatica presence: without sciatica Qualified Code(s): M54.5 - Low back pain; G89.29 - Other chronic pain - Subjective Interval history: Patient is very uncomfortable due to abdominal pain and nausea; no diarrhea. Pain is mostly in central and right lower abdomen, worse with movement; seen by Surgery and plan for cholecystectomy tomorrow; - Constitutional Vitals: Temp Pulse Resp BP Pulse Ox 99.4 F 75 17 118/58 95 12/09/16 11:01 12/09/16 11:01 12/09/16 11:01 12/09/16 11:01 12/09/16 11:01 General appearance: Present: mild distress, A&O X 3, answers questions appropriately - Respiratory Respiratory exam: Present: CTAB (anterolaterally). Absent: accessory muscle use , rales, rhonchi, wheezes - Cardiovascular Cardiovascular exam: Present: RRR, +S1, +S2. Absent: diastolic murmur, gallop, rubs, systolic murmur - GI/Abdominal GI/Abdominal exam: Present: normal bowel sounds, soft (tenderness in central and RLQ of abdomen, no guarding/rigidity), no peritoneal signs. Absent: distended, tenderness - Extremities Exam Extremities exam: Present: full ROM, warm, radial pulses palpable and symetrical. Absent: calf tenderness, cyanotic, pedal edema - Neurological Exam Neurological exam: Present: CN II-XII intact, oriented X3, no focal deficits. Absent: pronater drift, facial droop, speech deficit - Skin Skin exam: Present: dry, intact Internal Medicine: Result - Labs CBC & Chem 7: 12/09/16 00:30 12/09/16 00:30 Labs: Short CBC 12/09/16 Range/Units 00:30 WBC 7.0 (4.3-11.1) K/mcL Hgb 12.0 (11.5-15.4) g/dL Hct 37.2 (35.3-44.9) % Plt Count 175 (140-400) K/mcL Neutrophils # 2.5 (1.6-8.9) K/mcL BMP 12/09/16 00:30 Sodium 136 Potassium 3.5 Chloride 101 Carbon Dioxide 27 BUN 8 Creatinine 0.97 Glucose 97 Calcium 8.1 L Liver Function 12/09/16 Range/Units 00:30 Total Bilirubin 1.3 H (0.2-1.2) mg/dL Direct Bilirubin 0.9 H (0.0-0.5) mg/dL AST 145 H (5-34) Units/L ALT 191 H (0-55) Units/L Alkaline Phosphatase 113 (38-126) Units/L Albumin 2.8 L (3.5-5.0) g/dL Urine 12/08/16 Range/Units 14:50 Urine Color Yellow (Yellow) Urine Clarity Clear (Clear) Urine pH 6.5 (5.0-8.0) pH Units Ur Specific [place] 1.018 (1.010-1.025) Urine Protein Negative (Neg-Trace) mg/dL Urine Glucose (UA) Normal (Normal) mg/dL - ABG Interpretation ABG results: PT/INR, D-dimer PT 12.4 Seconds (9.4-12.1) H 12/06/16 16:45 Consult Discharge Plan - Plan Referrals: Juana Toro MD [Primary Care Provider] -
--- NOTE | 2016-12-09 13:52 | General Surgery Consult Note ---
Date of Encounter: 12/09/16 Time of Encounter: 10:30 Assessment and Plan (1) Intractable abdominal pain Current Visit: Yes Status: Acute Patient reports symptoms and history consistent with gallbladder etiology. However, discussed with patient that removing gallbladder may or may not alleviate her symptoms suspect acute cholecystitis. Alternative etiologies discussed. Patient elects to proceed with laparoscopic cholecystectomy. Plan: Laparoscopic cholecystectomy with intraoperative cholangiogram Nothing by mouth after midnight continue IV fluids continue IV antibiotics Supportive care and pain control Incentive spirometer every 1 hour while awake PPI therapy Risks, benefits, alternatives, expected outcomes reviewed with the patient is agreement to proceed to the operating room with for Laparoscopic cholecystectomy with intraoperative cholangiogram in the next 24 hours. Verbal and written consent was obtained, signed, dated and placed in the chart. The assessment and plan as outlined above was discussed with the patient and/or family members who expressed understanding and agreement. All questions were answered. (2) Abnormal liver function tests Current Visit: Yes Status: Acute Elevations suggest damage to the liver or biliary obstruction as well as impaired hepatic synthetic function. Total bilirubin: 1.3 Direct bilirubin: 0.9 Indirect bilirubin 0.4 Alkaline phosphatase 113 AST 145 ALT 191 Albumin 2.8 PT 12.4 INR 1.1 Plan Laparoscopic cholecystectomy with intraoperative cholangiogram. Continue to follow liver function tests for resolution (3) Gallbladder sludge Current Visit: Yes Status: Acute Ultrasound of the right upper quadrant performed on 10/30/16 Impression: Sludge present within the gallbladder which is otherwise unremarkable. Diffuse fatty infiltration of the liver. History of Present Illness Consult date: 12/09/16 Reason for consult: abdominal pain Requesting physician: Carol Taylor History of present illness: Ms. Drake is a 46-year-old female with a past medical history of lumbar disc disease, chronic back pain with history of lumbar epidural injections, morbid obesity, fatty liver, hypothyroidism, metabolic syndrome, ovarian cysts, hypertension who is being evaluated for persistent right upper quadrant abdominal pain. Patient reports that abdominal pain began approximately 5 months ago as intermittent colicky right upper quadrant pain with radiation to her right lower quadrant described as sharp crampy pain at onset lasting approximately 30 minutes to 2 hours and resolving on its own. However, over the past month symptoms have increased in intensity and duration prompting her to be evaluated by her primary care physician for further workup. Over the past 4 days patient has developed intractable right upper quadrant abdominal pain that prompted her to be evaluated at the emergency department. Patient is unsure whether symptoms correlate postprandially or to certain foods that she eats. Associated symptoms include: Nausea, vomiting, decreased appetite, myalgia, intermittent fevers and sweating, headache, muscle spasms. Ultrasound of the right upper quadrant performed on 10/30/16 Impression: Sludge present within the gallbladder which is otherwise unremarkable. Diffuse fatty infiltration of the liver. HIDA scan performed on 11/08/2016 Impression: No scintigraphic findings of acute or chronic cholecystitis. Gallbladder ejection fraction measured 92%. Past surgical history: Thyroidectomy 2003 Hysterectomy 2005 Laminectomy 2012, 2013, 2016 Right arthroscopic Rotator cuff repair 2014 Left breast biopsy 05/02/15 Excisional left breast biopsy performed by Dr. Dotson 05/09/15 pathology report benign breast parenchyma Postoperative seroma patient states was drained 04/10/16 After patient had laminectomy in December 2015 she developed a spinal fluid leak that was patched/repaired in May. Last meal: 9:00 AM she ate a piece of sausage but really had no appetite. Last bowel movement: 4 days ago semihard stool. Past Med Surg Social Fam HX - Past Medical History Medical history: GERD, hypertension, thyroid disease Psychiatric history: depression - Past Surgical History Surgical History: hysterectomy, thyroidectomy, other (L5-S1 laminectomy with fusion, she reports 3 back surgeries, thyroidectomy, shoulder surgery, left breast biopsy, lumpectomy, ) - Social History Smoking Status: Never smoker Smokeless Tobacco Status: No Alcohol use: none Drug use: none - Family History Mother Living Status: Still Living Hx Family Cardiac Disorders: Yes Father Living Status: Still Living Hx Family Cardiac Disorders: Yes Hx Family Cancer: Yes Hx Family Endocrine Disorder: Yes (dm) Medications and Allergies Lisinopril/Hydrochlorothiazide [Zestoretic 20-25 mg Tablet] 1 each PO DAILY [History] BuPROPion XL (24 HR) [Wellbutrin XL] 150 mg PO DAILY 12/06/16 [History] Cyclobenzaprine HCl 5 mg PO TID PRN 12/06/16 [History] Diclofenac Sodium [Voltaren] 1 appl TP QID PRN 12/06/16 [History] Gabapentin [Neurontin] 1,200 mg PO QID PRN 12/06/16 [History] Levothyroxine [Synthroid] 150 mcg PO QAM 12/06/16 [History] Zolpidem Tartrate [Ambien Cr] 12.5 mg PO HS 12/06/16 [History] Allergies hydrocodone Adverse Reaction (Verified 04/27/15 12:22) Vomiting Review of Systems All systems PM: A 10-system review of systems was performed and is negative for pertinent findings except as documented above in the HPI. - Constitutional anorexia, chills, fatigue, fever(s), headache(s), malaise - EENT Nose, mouth and throat: dysphagia, headache(s) - Cardiovascular diaphoresis, no chest pain, no claudication, no edema, no lightheadedness, no syncope - Respiratory no cough, no hemoptysis, no excessive phlegm production - Gastrointestinal abdominal pain, constipation, cramping, nausea, vomiting, no belching, no bloating, no coffee ground emesis, no diarrhea, no dysphagia, no excessive flatus, no fecal incontinence, no hematemesis, no hematochezia, no melena, no tenesmus - Genitourinary Genitourinary: no dysuria, no flank pain, no genital lesions, no hematuria - Musculoskeletal arthralgias, back pain, limited range of motion, muscle cramps, myalgias, neck pain, radiating pain into limb (Radiculopathy right lower extremity, Positive straight leg test) - Integumentary no rash, no unusual bruising, no jaundice - Neurological radicular pain, no confusion, no convulsions, no loss of vision, no memory loss - Psychiatric depression - Endocrine other (Thyroidectomy), no palpitations, no polydipsia, no polyphagia - Hematologic/Lymphatic no easy bleeding, no easy bruising, no lymphadenopathy - Allergic/Immunologic no tongue swelling, no throat swelling General Surgery Exam Initial Vital Signs Temp Pulse Resp BP Pulse Ox 98.8 F 98 18 121/69 98 12/06/16 16:03 12/06/16 16:03 12/06/16 16:03 12/06/16 16:03 12/06/16 16:03 - General physical appearance well developed, well nourished, moderate distress, moderate pain, obese. negative: jaundice - Eyes PERRL, normal ocular movement - ENT normal nares, atraumatic, normocephalic, CN 2-12 grossly intact - Neck trachea midline, no venous distension - Respiratory normal expansion, normal respiratory effort, clear to auscultation - Cardiovascular Cardiovascular exam: Present: RRR, no murmurs/rubs/gallops. Absent: JVD - Abdomen Abdomen general surgery: Present: bowel sounds present, soft, tender, guarding, surgical scars. Absent: distended, organomegaly, masses, rebound, rigid Abdominal Tenderness: Present: RUQ, RLQ - Integumentary Integumentary general surgery: Present: warm and dry, no abnormal pigmentation - Neurologic Present: CN 2-12 grossly intact, normal coordination, normal sensation - Musculoskeletal Present: normal gait, normal posture - Psychiatric Psychiatric general surgery: Present: A&Ox3, appropriate, speech is normal, memory intact Exam Initial Vital Signs Temp Pulse Resp BP Pulse Ox 98.8 F 98 18 121/69 98 12/06/16 16:03 12/06/16 16:03 12/06/16 16:03 12/06/16 16:03 12/06/16 16:03 Results - Labs 12/09/16 00:30 12/09/16 00:30 Abnormal lab results RDW 15.1 % (11.5-14.5) H 12/09/16 00:30 Immature Gran % 4.5 % (0-4) H 12/08/16 03:36 Band Neutrophils % 10.0 % (0-4) H 12/09/16 00:30 Reactive Lymphocytes Present (Not Present) A 12/09/16 00:30 Large Platelets Present (Not Present) A 12/07/16 03:46 PT 12.4 Seconds (9.4-12.1) H 12/06/16 16:45 Hemoglobin A1c 5.7 % (-5.6) H 12/09/16 00:30 Calcium 8.1 mg/dL (8.6-10.8) L 12/09/16 00:30 Iron 44 mcg/dL (50-170) L 12/08/16 03:36 Transferrin 174 mg/dL (180-382) L 12/08/16 03:36 Total Bilirubin 1.3 mg/dL (0.2-1.2) H 12/09/16 00:30 Direct Bilirubin 0.9 mg/dL (0.0-0.5) H 12/09/16 00:30 AST 145 Units/L (5-34) H 12/09/16 00:30 ALT 191 Units/L (0-55) H 12/09/16 00:30 C-Reactive Protein 33 mg/L (Less than 5) H 12/06/16 16:45 Serum Total Protein 5.7 g/dL (6.0-8.3) L 12/09/16 00:30 Albumin 2.8 g/dL (3.5-5.0) L 12/09/16 00:30 Albumin/Globulin Ratio 1.0 (1.1-2.2) L 12/09/16 00:30 Triglycerides 246 mg/dL (< 150) H 12/08/16 03:36 VLDL Cholesterol, Calc 49 mg/dL (< 31) H 12/08/16 03:36 HDL Cholesterol 21 mg/dL (40-59) L 12/08/16 03:36 Cholesterol/HDL Ratio 6.8 (0-4.9) H 12/08/16 03:36 Urine Urobilinogen 2.0 mg/dL (Normal) H 12/08/16 14:50 Ur Squamous Epith Cells Many per lpf (None-Few) H 12/06/16 18:06 Acetaminophen < 1.0 mcg/mL (10-30) L 12/06/16 16:45 Diabetes panel 12/09/16 12/09/16 Range/Units 00:30 00:30 Sodium 136 (136-145) mEq/L Potassium 3.5 (3.5-4.5) mEq/L Chloride 101 (98-109) mEq/L Carbon Dioxide 27 (19-29) mEq/L BUN 8 (7-20) mg/dL Creatinine 0.97 (0.57-1.11) mg/dL Glucose 97 (70-99) mg/dL Hemoglobin A1c 5.7 H ( - 5.6) % Calcium 8.1 L (8.6-10.8) mg/dL AST 145 H (5-34) Units/L ALT 191 H (0-55) Units/L Alkaline Phosphatase 113 (38-126) Units/L Albumin 2.8 L (3.5-5.0) g/dL Calcium panel 12/09/16 Range/Units 00:30 Calcium 8.1 L (8.6-10.8) mg/dL Albumin 2.8 L (3.5-5.0) g/dL Pituitary panel 12/09/16 Range/Units 00:30 Sodium 136 (136-145) mEq/L Potassium 3.5 (3.5-4.5) mEq/L Chloride 101 (98-109) mEq/L Carbon Dioxide 27 (19-29) mEq/L BUN 8 (7-20) mg/dL Creatinine 0.97 (0.57-1.11) mg/dL Glucose 97 (70-99) mg/dL Calcium 8.1 L (8.6-10.8) mg/dL Adrenal panel 12/09/16 Range/Units 00:30 Sodium 136 (136-145) mEq/L Potassium 3.5 (3.5-4.5) mEq/L Chloride 101 (98-109) mEq/L Carbon Dioxide 27 (19-29) mEq/L BUN 8 (7-20) mg/dL Creatinine 0.97 (0.57-1.11) mg/dL Glucose 97 (70-99) mg/dL Calcium 8.1 L (8.6-10.8) mg/dL Total Bilirubin 1.3 H (0.2-1.2) mg/dL AST 145 H (5-34) Units/L ALT 191 H (0-55) Units/L Alkaline Phosphatase 113 (38-126) Units/L Albumin 2.8 L (3.5-5.0) g/dL All other labs normal. Consult Discharge Plan - Plan Referrals: Juana Toro MD [Primary Care Provider] -
[2016-12-09] MEDS: *HR* Morphine 2 MG/ML SYRINGE IVP PRN ×2 (14:52→21:06)
[2016-12-09] MEDS: *HR* OxyCODONE Immed Rel 5 MG TABLET PO PRN (17:33)
[2016-12-09] MEDS: D5% in 0.45% NACL 1,000 ML IVC SCH (19:04)
[2016-12-09] MEDS ORDERED: *HR* Morphine 2 MG/ML SYRINGE IVP PRN (21:38)
[2016-12-09] MEDS ORDERED: Ibuprofen 400 MG TABLET PO ONE (21:47)
[2016-12-10] MEDS: *HR* OxyCODONE Immed Rel 5 MG TABLET PO PRN ×2 (03:04→11:30)
[2016-12-10] MEDS: D5% in 0.45% NACL 1,000 ML IVC SCH ×3 (03:08→18:33)
[2016-12-10 06:00] LABS: Chol/HDL Ratio 6.6 (0-4.9); Cholesterol 125 mg/dL (< 200); HDL Cholesterol 19 mg/dL (40-59); LDL Cholesterol,Calculated 63 mg/dL (0-99); Triglycerides 216 mg/dL (< 150)
[2016-12-10] MEDS: Gabapentin 400 MG CAPSULE PO PRN ×2 (06:27→22:42)
[2016-12-10 08:34] LABS: Eosinophils # 0.1 K/mcL (0.0-0.6); Hematocrit 34.8 % (35.3-44.9); Hemoglobin 11.1 g/dL (11.5-15.4); Mean Corpuscular HGB Conc 31.9 g/dL (31.6-35.5); Mean Corpuscular Hemoglobin 28.2 pg (28.0-33.3); Mean Corpuscular Volume 88.5 fL (83.0-100.0); Mean Platelet Volume 10.7 fL (9.4-12.4); Platelet Count 168 K/mcL (140-400); Red Blood Count 3.93 M/mcL (3.82-4.97); Red Cell Distribution Width 15.6 % (11.5-14.5)
[2016-12-10 08:46] LABS: Alanine Aminotransferase 154 Units/L (0-55); Albumin 2.4 g/dL (3.5-5.0); Albumin/Globulin Ratio 0.9 (1.1-2.2); Alkaline Phosphatase 103 Units/L (38-126); Aspartate Amino Transferase 120 Units/L (5-34); BUN/Creatinine Ratio 9 (6-26); Bilirubin,Total 1.1 mg/dL (0.2-1.2); Blood Urea Nitrogen 8 mg/dL (7-20); Calcium 7.7 mg/dL (8.6-10.8); Carbon Dioxide 25 mEq/L (19-29); Chloride 106 mEq/L (98-109); Globulin 2.7 g/dL (2.4-3.5); Glucose 101 mg/dL (70-99); Osmolality,Calculated 286 (280-300); Potassium 3.2 mEq/L (3.5-4.5); Sodium 139 mEq/L (136-145); Total Protein 5.1 g/dL (6.0-8.3); eGFR For African Americans > 60 (> 60); eGFR For Non-African Americans > 60 (> 60)
[2016-12-10 09:21] LABS: Lymphocytes # 2.8 K/mcL (0.6-4.6); Monocytes # 0.2 K/mcL (0.0-1.3); Neutrophils # 2.6 K/mcL (1.6-8.9); Reactive Lymphocytes Present (Not Present)
[2016-12-10 09:22] LABS: Platelet Estimate Normal (Normal)
[2016-12-10] MEDS: Piperacillin/Tazobactam 3.375 GM in D5% in Water (Mini-Bag+) 100 ML IVPB SCH ×2 (09:24→18:33)
[2016-12-10] MEDS: BuPROPion XL (24 HR) 150 MG TABLET PO SCH (09:25)
[2016-12-10] MEDS ORDERED: *HR* Morphine 2 MG/ML SYRINGE IVP PRN (10:41)
--- NOTE | 2016-12-10 12:21 | Event Note ---
Date of Encounter: 12/10/16 Time of Encounter: 12:18 Pt has been seen by Surgery, laparoscopic cholecystectomy planned. If IOC is abnormal, we will consider ERCP. No indication at this time for GI involvement.
--- NOTE | 2016-12-10 13:53 | Internal Med Progress Note ---
Date of Encounter: 12/10/16 Time of Encounter: 13:52 - Assessment and plan (1) Gallbladder sludge Current Visit: Yes Status: Acute Assessment and plan: patient admitted with intractable RLQ abdominal pain associated with nausea and vomiting; CT abdomen/pelvis showed no acute abnormality; recent RUQ U/S showed gallbladder sludge and biliary scan was normal. Continue IV hydration with pain control with PRN IV Morphine; PRN antiemetics. Surgery has been consulted due to persistent symptoms, plan for laparoscopic cholecystectomy today, in an attempt to control her symptoms, although clinical picture is not classic for acute or chronic cholecystitis. Continue to monitor. Monitor and replete electrolytes as needed. (2) Abnormal liver function tests Current Visit: Yes Status: Acute Assessment and plan: new diagnosis per patient; CT abdomen shows fatty liver, which may be the likely cause for elevated AST/ALT; viral hepatitis profile negative; lipid panel shows mildly elevated TGs; LFTs noted to be improving today. (3) Hypothyroidism Current Visit: Yes Status: Chronic Assessment and plan: resume Levothyroxine; Qualifiers: Hypothyroidism type: postoperative Qualified Code(s): E89.0 - Postprocedural hypothyroidism (4) Obesity Current Visit: Yes Status: Chronic Qualifiers: Obesity type: due to excess calories Obesity severity: morbid Qualified Code(s): E66.01 - Morbid (severe) obesity due to excess calories (5) Lumbar disc disease Current Visit: Yes Status: Chronic (6) Chronic back pain Current Visit: Yes Status: Chronic Assessment and plan: Continue home medications including gabapentin and Flexeril. Qualifiers: Back pain location: low back pain Back pain laterality: bilateral Sciatica presence: without sciatica Qualified Code(s): M54.5 - Low back pain; G89.29 - Other chronic pain - Subjective Interval history: Continues to report significant right lower abdominal pain associated with nausea; awaiting cholecystectomy today by Surgery; - Constitutional Vitals: Temp Pulse Resp BP Pulse Ox 99.5 F 73 15 122/81 93 12/10/16 11:14 12/10/16 11:14 12/10/16 11:14 12/10/16 13:26 12/10/16 11:14 General appearance: Present: mild distress, A&O X 3, answers questions appropriately - Respiratory Respiratory exam: Present: CTAB. Absent: accessory muscle use, rales, rhonchi, wheezes - Cardiovascular Cardiovascular exam: Present: RRR, +S1, +S2. Absent: diastolic murmur, gallop, rubs, systolic murmur - GI/Abdominal GI/Abdominal exam: Present: normal bowel sounds, soft (RLQ tenderness), no peritoneal signs. Absent: distended, tenderness - Extremities Exam Extremities exam: Present: full ROM, warm, radial pulses palpable and symetrical. Absent: calf tenderness, cyanotic, pedal edema Internal Medicine: Result - Labs CBC & Chem 7: 12/10/16 04:39 12/10/16 04:39 Labs: Short CBC 12/10/16 Range/Units 04:39 WBC 6.0 (4.3-11.1) K/mcL Hgb 11.1 L (11.5-15.4) g/dL Hct 34.8 L (35.3-44.9) % Plt Count 168 (140-400) K/mcL Neutrophils # 2.6 (1.6-8.9) K/mcL BMP 12/10/16 04:39 Sodium 139 Potassium 3.2 L Chloride 106 Carbon Dioxide 25 BUN 8 Creatinine 0.86 Glucose 101 H Calcium 7.7 L Liver Function 12/10/16 Range/Units 04:39 Total Bilirubin 1.1 (0.2-1.2) mg/dL AST 120 H (5-34) Units/L ALT 154 H (0-55) Units/L Alkaline Phosphatase 103 (38-126) Units/L Albumin 2.4 L (3.5-5.0) g/dL - ABG Interpretation ABG results: PT/INR, D-dimer PT 12.4 Seconds (9.4-12.1) H 12/06/16 16:45 - Impressions Impressions Chest X-Ray 12/09/16 13:23 IMPRESSION: New diffuse interstitial opacities and patchy but predominately central airspace opacities, suspicious for pneumonia given the clinical findings but more frequently seen with pulmonary edema. D/ / Obinna Means MD / Obinna Means MD Interpreting Provider: Obinna Means MD Consult Discharge Plan - Plan Referrals: Juana Toro MD [Primary Care Provider] -
--- NOTE | 2016-12-10 15:09 | Anesthesia Evaluation PreOp ---
Date of Encounter: 12/10/16 Time of Encounter: 15:07 - Past History Planned Operation: Lap. 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 History: Other (anxiety/depression) Other Medical History: Thyroid (Hypothyroid), GERD, Other (Morbid obesity BMI 47.5) Anesthesia History: Past Anesthesia (AIDA, Back sx x 3, Shoulder sx) : No (AIDA) Alcohol Use: none Drug use: none Medications and Allergies Lisinopril/Hydrochlorothiazide [Zestoretic 20-25 mg Tablet] 1 each PO DAILY [History] BuPROPion XL (24 HR) [Wellbutrin XL] 150 mg PO DAILY 12/06/16 [History] Cyclobenzaprine HCl 5 mg PO TID PRN 12/06/16 [History] Diclofenac Sodium [Voltaren] 1 appl TP QID PRN 12/06/16 [History] Gabapentin [Neurontin] 1,200 mg PO QID PRN 12/06/16 [History] Levothyroxine [Synthroid] 150 mcg PO QAM 12/06/16 [History] Zolpidem Tartrate [Ambien Cr] 12.5 mg PO HS 12/06/16 [History] Allergies hydrocodone Adverse Reaction (Verified 04/27/15 12:22) Vomiting - Meds/Allergy Pre-op Review Medications Reviewed: Yes Allergies Reviewed: Yes Beta Blockers on Current Med List: No Anesthesia Results - Labs 12/10/16 04:39 12/10/16 04:39 - Imaging EKG: image reviewed (SR 2014) Anesthesia Exam O2 Sat Weight 137.438 kg O2 Sat by Pulse Oximetry 93 O2 Sat by Pulse Oximetry 92 O2 Sat by Pulse Oximetry 93 O2 Sat by Pulse Oximetry 95 O2 Sat by Pulse Oximetry 90 O2 Sat by Pulse Oximetry 93 O2 Sat by Pulse Oximetry 96 O2 Sat by Pulse Oximetry 96 Vital Signs Temp Pulse Resp BP Pulse Ox 98.8 F 98 18 121/69 98 12/06/16 16:03 12/06/16 16:03 12/06/16 16:03 12/06/16 16:03 12/06/16 16:03 Vital Signs/O2 Sat, Most Current Temp Pulse Resp BP Pulse Ox 99.5 F 73 15 122/81 93 12/10/16 11:14 12/10/16 11:14 12/10/16 11:14 12/10/16 13:26 12/10/16 11:14 Height: 5'7'' Weight: 303# NPO (# of Hours): > 8 hrs Pain Scale: 0 Pain Scale Used: Numeric (1 - 10) - HEENT Pupil (Motor): Pupils equal, EOMI Mallampati: II Teeth: Normal Oral Opening: Greater than 3 - TANK ASSEMBLER LOC: Oriented TANK ASSEMBLER Motor: Normal RUE, Normal LUE, Normal RLE, Normal LLE, Normal Face TANK ASSEMBLER Sensory: Normal: RUE, LUE, RLE, LLE, Face - Cardiac Rhythm: Regular Murmur: None JVD: No Carotid Bruit: No - Pulmonary Breath Sounds: bilateral Clear Respiratory Effort: Symmetrical Anesthesia Assess/Plan ASA Score: 3 Modified [place] Scale for Level of Consciousness: Cooperative, oriented, and tranquil Anesthetic Plan: General Autologous Blood: Yes Monitoring Plan: Standard Monitors Recovery Plan: PACU
[2016-12-10] MEDS ORDERED: Bupivacaine/EPI 1:200k 0.5%PF 30 ML VIAL ONE (15:13)
[2016-12-10] MEDS ORDERED: Acetaminophen IV 1,000 MG/100 ML INFUS..BTL ONE (15:30)
[2016-12-10] MEDS ORDERED: Famotidine 20 MG/2 ML VIAL ONE (15:31)
[2016-12-10] MEDS ORDERED: *HR* Promethazine 25 MG/ML VIAL IVP PRN (16:06)
[2016-12-10] MEDS ORDERED: *HR* Labetalol 100 MG/20 ML MDV IVP PRN (16:06)
[2016-12-10] MEDS ORDERED: *HR* HYDROmorphone (PF) 1 MG/ML SYRINGE IVP PRN (16:06)
[2016-12-10] MEDS ORDERED: Ondansetron 4 MG/2 ML VIAL IVP ONE ×2 (16:06→17:12)
[2016-12-10] MEDS ORDERED: Dexamethasone 4 MG/ML VIAL IVP ONE (16:06)
[2016-12-10] MEDS ORDERED: *HR* Succinylcholine 200 MG/10 ML VIAL IVP ONE (16:20)
[2016-12-10] MEDS ORDERED: Dexamethasone 4 MG/ML VIAL ONE (16:20)
[2016-12-10] MEDS ORDERED: Neostigmine Methylsulfate 3 MG/3 ML SYRINGE ONE (16:20)
[2016-12-10] MEDS ORDERED: Lidocaine -MPF 2% 2 ML VIAL ONE (16:20)
[2016-12-10] MEDS ORDERED: CefOXitin 2,000 MG VIAL IVPB ONE (16:20)
[2016-12-10] MEDS ORDERED: Ondansetron 4 MG/2 ML VIAL ONE (16:20)
[2016-12-10] MEDS ORDERED: *HR* Midazolam HCl 2 MG/2 ML VIAL ONE (16:20)
[2016-12-10] MEDS ORDERED: Lidocaine -MPF 4% 5 ML AMPUL ONE (16:20)
[2016-12-10] MEDS ORDERED: *HR* FentaNYL (PF) 100 MCG/2 ML VIAL ONE (16:20)
[2016-12-10] MEDS ORDERED: *HR* Rocuronium Bromide 50 MG/5 ML VIAL ONE (16:20)
[2016-12-10] MEDS ORDERED: *HR* Propofol 200 MG/20 ML VIAL IVP ONE (16:20)
[2016-12-10] MEDS ORDERED: *HR* Morphine 10 MG/ML VIAL ONE (16:20)
--- NOTE | 2016-12-10 16:52 | Anesthesia Evaluation Post Op ---
Date of Encounter: 12/10/16 Time of Encounter: 16:50 - Vital Signs Vital Signs: vss - Lungs Lungs: Clear Ascult./Percussion - Airway Airway: Non-obstructed - Cardiovascular Baseline Rhythm - Mental Status Mental Status: Alert & Oriented, Answers Appropriately - Pain Pain Scale: 0 Pain Scale used: Numeric (1 - 10) - Nausea Vomiting Nausea Vomiting: Present - Hydration Hydration: Ice chips - Discharge PostOp Status: Transfer Patient to floor
[2016-12-10] MEDS ORDERED: Ondansetron 4 MG/2 ML VIAL IVP PRN (17:12)
[2016-12-10] MEDS ORDERED: Naloxone 0.4 MG/ML INJ IVP PRN (17:12)
[2016-12-10] MEDS: *HR* Morphine 2 MG/ML SYRINGE IVP PRN ×2 (19:37→22:42)
[2016-12-11] MEDS: *HR* OxyCODONE Immed Rel 5 MG TABLET PO PRN ×2 (01:38→21:18)
[2016-12-11] MEDS: *HR* Morphine 2 MG/ML SYRINGE IVP PRN ×2 (06:10→10:52)
[2016-12-11] MEDS: D5% in 0.45% NACL 1,000 ML IVC SCH (07:17)
[2016-12-11] MEDS: BuPROPion XL (24 HR) 150 MG TABLET PO SCH (08:08)
[2016-12-11 08:31] LABS: Hematocrit 33.6 % (35.3-44.9); Hemoglobin 10.9 g/dL (11.5-15.4); Immature Platelets 4.3 % (1.1-6.1); Mean Corpuscular HGB Conc 32.4 g/dL (31.6-35.5); Mean Corpuscular Hemoglobin 28.2 pg (28.0-33.3); Mean Platelet Volume 10.5 fL (9.4-12.4); Platelet Count 208 K/mcL (140-400); Red Blood Count 3.86 M/mcL (3.82-4.97); Red Cell Distribution Width 15.6 % (11.5-14.5)
[2016-12-11 08:43] LABS: BUN/Creatinine Ratio 10 (6-26); Blood Urea Nitrogen 8 mg/dL (7-20); Calcium 7.9 mg/dL (8.6-10.8); Carbon Dioxide 26 mEq/L (19-29); Chloride 106 mEq/L (98-109); Glucose 102 mg/dL (70-99); Osmolality,Calculated 287 (280-300); Potassium 4.1 mEq/L (3.5-4.5); Sodium 139 mEq/L (136-145); eGFR For African Americans > 60 (> 60); eGFR For Non-African Americans > 60 (> 60)
[2016-12-11 08:48] LABS: Eosinophils # 0.1 K/mcL (0.0-0.6); Lymphocytes # 2.8 K/mcL (0.6-4.6); Monocytes # 0.5 K/mcL (0.0-1.3); Neutrophils # 2.9 K/mcL (1.6-8.9)
[2016-12-11 08:49] LABS: Platelet Estimate Normal (Normal)
--- NOTE | 2016-12-11 11:31 | Operative Note ---
Date of procedure: 12/10/16 Pre-op diagnosis: Biliary dyskinesia Post-op diagnosis: same Procedure: Laparoscopic cholecystectomy with cholangiogram Anesthesia: ELEAZAR Surgeon: Philip Trevino Estimated blood loss (cc): 5 Specimen: Gallbladder Condition: stable Disposition: same day Procedure in Detail: After informed consent this patient was taken the operating room placed supine position. After adequate sedation anesthesia the abdomen was prepped and draped. A proper timeout was performed. Two towel clamps are placed at the umbilicus and a Veres needle was inserted into the abdomen. A 5 mm incision was made at the umbilicus. A 12 mm incision was made in the subxiphoid region. Two 5 mm incisions were made in the right upper quadrant that were 4 finger breadths and 6 finger breadths below the costal margin. The gallbladder was identified, retracted anteriorly and cephalad, and the infundibulum was skeletonized. The cystic duct was easily identified and was dissected free. A ductotomy was created in the cystic duct. A taut catheter was placed within the cystic duct and clipped. A cholangiogram was performed. Contrast filled the cystic duct, common hepatic duct, hepatic radicles, and the distal common bile duct. There was flow of contrast into the duodenum. Once this was confirmed the clippers removed, the taut catheter was removed as well, and the cystic duct was clipped distally. The cystic duct was then transected with scissors. The gallbladder was resected off the liver surface. There was excellent hemostasis. The gallbladder was then retrieved through the 12 mm cannula site. At this point the abdomen was suctioned dry and the pneumoperitoneum was then evacuated. All ports were removed. The 12 mm cannula site was closed with an 0 Vicryl suture in [id number] fashion. The skin was closed with 4-0 Vicryl suture. Dermabond was placed as well. All instrument counts and needle counts are correct in the operation. The patient tolerated the procedure well and was transferred to the PACU in stable condition.
--- NOTE | 2016-12-11 12:07 | General Surgery Progress Note ---
Date of Encounter: 12/11/16 Time of Encounter: 11:45 - Assessment and Plan (1) Biliary dyskinesia Current Visit: Yes Status: Acute POD #1 from a laparoscopic cholecystectomy with Dr. Trevino Advance diet as tolerated Supportive care and pain control May discharge from a surgical standpoint when patient medically stable See surgical discharge instructions Subjective Patient reports: no new complaints, feels better, tolerating a regular diet, voiding w/o difficulty, no flatus, no bowel movement, afebrile, other ( complaint of headache) Objective Vital Signs - Last 8 Hours Temp Pulse Resp BP Pulse Ox 12/11/16 10:48 97.6 F 58 16 107/76 98 12/11/16 08:10 96 12/11/16 07:16 97.5 F L 63 18 95/59 96 Intake and Output 12/10/16 12/11/16 12/11/16 23:59 07:59 15:59 Intake Total 100 / 100 1000 / 1000 240 / 240 Output Total 5 / 5 Balance 95 / 95 1000 / 1000 240 / 240 Intake: IV Fluids 100 / 100 1000 / 1000 D5% And 0.45% Nacl 1000 1000 / 1000 Ml Bag 1,000 ML @ 75 mls/ hr IVC .[id number] LUC[facility] Rx#: [id number] Potassium Chloride 10 mEq 100 / 100 /100mL 10 meq In 100 ml @ 100 mls/hr IVPB Q1H LUC[facility] Rx#:[id number] Oral 240 / 240 Output: Urine 0 / 0 Estimated Blood Loss 5 / 5 Other: Meal Breakfast Percent of Meal Consumed 95% Weight 149.771 kg Patient Weight 12/11/16 23:59 Weight 149.771 kg - General physical appearance well developed, well nourished, no distress - Eyes normal ocular movement - ENT normal mucosa, atraumatic, normocephalic - Neck Neck exam: trachea midline - Respiratory normal respiratory effort, clear to auscultation, other (diminished bibasilar bases) - Cardiovascular Cardiovascular exam: Present: RRR - Abdomen Abdomen: Present: bowel sounds present, soft, tender (Expected postoperative tenderness) - Incision Incision: Present: clean and dry, intact - Integumentary no rash - Neurologic CN 2-12 grossly intact - Musculoskeletal normal posture - Psychiatric oriented to time, oriented to person, oriented to place, speech is normal, memory intact - Labs 12/11/16 08:01 12/11/16 08:01 Diabetes panel 12/11/16 Range/Units 08:01 Sodium 139 (136-145) mEq/L Potassium 4.1 (3.5-4.5) mEq/L Chloride 106 (98-109) mEq/L Carbon Dioxide 26 (19-29) mEq/L BUN 8 (7-20) mg/dL Creatinine 0.80 (0.57-1.11) mg/dL Glucose 102 H (70-99) mg/dL Calcium 7.9 L (8.6-10.8) mg/dL Calcium panel 12/11/16 Range/Units 08:01 Calcium 7.9 L (8.6-10.8) mg/dL Pituitary panel 12/11/16 Range/Units 08:01 Sodium 139 (136-145) mEq/L Potassium 4.1 (3.5-4.5) mEq/L Chloride 106 (98-109) mEq/L Carbon Dioxide 26 (19-29) mEq/L BUN 8 (7-20) mg/dL Creatinine 0.80 (0.57-1.11) mg/dL Glucose 102 H (70-99) mg/dL Calcium 7.9 L (8.6-10.8) mg/dL Adrenal panel 12/11/16 Range/Units 08:01 Sodium 139 (136-145) mEq/L Potassium 4.1 (3.5-4.5) mEq/L Chloride 106 (98-109) mEq/L Carbon Dioxide 26 (19-29) mEq/L BUN 8 (7-20) mg/dL Creatinine 0.80 (0.57-1.11) mg/dL Glucose 102 H (70-99) mg/dL Calcium 7.9 L (8.6-10.8) mg/dL - VTE Documentation of Mechanical Device: Intermittent pneumatic compression device Consult Discharge Plan - Plan Additional Instructions: Surgical discharge instructions: 1 may shower, no tub bath for 2 weeks #2 wash incisions with soap and water and pat dry daily #3 no lifting, pushing, pulling more than 15 pounds for the next 2 weeks #4 no driving until off narcotics for 24 hours and able to safely react in the car #5 may climb stairs Referrals: Juana Toro MD [Primary Care Provider] - Stephanie Radford CNP [Advanced Practice Nurse] - 12/26/16 9:15 am (Surgery follow-up) Prescriptions: Ondansetron ODT [Zofran ODT] 4 mg SL Q6HR PRN #30 tab.rapdis PRN Reason: Nausea And Vomiting OxyCODONE/APAP 5/325 [Percocet 5/325 MG] 1 each PO Q6HR PRN #30 tablet PRN Reason: Pain Docusate [Colace] 100 mg PO BID #30 capsule - Attending Attestation I examined this patient and my medical decision-making was reviewed with the AREA FIELD MANAGER/PA/Advanced Practice Nurse/Resident Physician. I agree with the documented findings, disposition and treatment plan as described except to the extent set forth below.
[2016-12-11] MEDS: Gabapentin 400 MG CAPSULE PO PRN (13:37)
--- NOTE | 2016-12-11 15:44 | Internal Med Progress Note ---
Date of Encounter: 12/11/16 Time of Encounter: 15:42 - Assessment and plan (1) Headache Current Visit: Yes Status: Acute Assessment and plan: Will use when necessary Toradol along with IV morphine. Supportive care. Qualifiers: Headache type: tension-type Headache chronicity pattern: acute headache Intractability: intractable Qualified Code(s): G44.201 - Tension-type headache , unspecified, intractable (2) Gallbladder sludge Current Visit: Yes Status: Acute Assessment and plan: patient admitted with intractable RLQ abdominal pain associated with nausea and vomiting; CT abdomen/pelvis showed no acute abnormality; recent RUQ U/S showed gallbladder sludge and biliary scan was normal. Surgery has been consulted due to persistent symptoms, and patient underwent laparoscopic cholecystectomy yesterday, postoperative day 1. Improved abdominal pain, nausea and vomiting. Clear liquid diet and advance as tolerated. When necessary senna and Colace. Pain control with when necessary IV Toradol and morphine. Supportive care. (3) Abnormal liver function tests Current Visit: Yes Status: Acute Assessment and plan: new diagnosis per patient; CT abdomen shows fatty liver, which may be the likely cause for elevated AST/ALT; viral hepatitis profile negative; lipid panel shows mildly elevated TGs; LFTs noted to be improving; (4) Hypothyroidism Current Visit: Yes Status: Chronic Assessment and plan: resume Levothyroxine; Qualifiers: Hypothyroidism type: postoperative Qualified Code(s): E89.0 - Postprocedural hypothyroidism (5) Obesity Current Visit: Yes Status: Chronic Qualifiers: Obesity type: due to excess calories Obesity severity: morbid Qualified Code(s): E66.01 - Morbid (severe) obesity due to excess calories (6) Lumbar disc disease Current Visit: Yes Status: Chronic (7) Chronic back pain Current Visit: Yes Status: Chronic Qualifiers: Back pain location: low back pain Back pain laterality: bilateral Sciatica presence: without sciatica Qualified Code(s): M54.5 - Low back pain; G89.29 - Other chronic pain - Subjective Interval history: Reports improved right lower abdominal pain, but has severe headache today; no flatus/bowel movement yet; no nausea/emesis; underwent laparoscopic cholecystectomy yesterday; - Constitutional Vitals: Temp Pulse Resp BP Pulse Ox 98.0 F 69 16 102/54 97 12/11/16 15:15 12/11/16 15:15 12/11/16 15:15 12/11/16 15:15 12/11/16 15:15 General appearance: Present: mild distress, A&O X 3, answers questions appropriately - Respiratory Respiratory exam: Present: CTAB. Absent: accessory muscle use, rales, rhonchi, wheezes - Cardiovascular Cardiovascular exam: Present: RRR, +S1, +S2. Absent: diastolic murmur, gallop, rubs, systolic murmur - GI/Abdominal GI/Abdominal exam: Present: diminished bowel sounds, soft (improved tenderness) , no peritoneal signs. Absent: distended, tenderness Internal Medicine: Result - Labs CBC & Chem 7: 12/11/16 08:01 12/11/16 08:01 Labs: Short CBC 12/11/16 Range/Units 08:01 WBC 6.4 (4.3-11.1) K/mcL Hgb 10.9 L (11.5-15.4) g/dL Hct 33.6 L (35.3-44.9) % Plt Count 208 (140-400) K/mcL Neutrophils # 2.9 (1.6-8.9) K/mcL BMP 12/11/16 08:01 Sodium 139 Potassium 4.1 Chloride 106 Carbon Dioxide 26 BUN 8 Creatinine 0.80 Glucose 102 H Calcium 7.9 L - ABG Interpretation ABG results: PT/INR, D-dimer PT 12.4 Seconds (9.4-12.1) H 12/06/16 16:45 - Impressions Impressions Cholangiogram,Operative 12/10/16 15:59 IMPRESSION: 1. Normal intraoperative cholangiogram. Please refer to dedicated procedure report for further details. D/ / 12/10/2016 18:13:15 Mattie Nunes MD / [email or web address] Interpreting Provider: Mattie Nunes MD - VTE Documentation of Mechanical Device: Intermittent pneumatic compression device Consult Discharge Plan - Plan Additional Instructions: Surgical discharge instructions: 1 may shower, no tub bath for 2 weeks #2 wash incisions with soap and water and pat dry daily #3 no lifting, pushing, pulling more than 15 pounds for the next 2 weeks #4 no driving until off narcotics for 24 hours and able to safely react in the car #5 may climb stairs Referrals: Stephanie Radford CNP [Advanced Practice Nurse] - 12/26/16 9:15 am (Surgery follow-up) Juana Toro MD [Primary Care Provider] - Prescriptions: Ondansetron ODT [Zofran ODT] 4 mg SL Q6HR PRN #30 tab.rapdis PRN Reason: Nausea And Vomiting OxyCODONE/APAP 5/325 [Percocet 5/325 MG] 1 each PO Q6HR PRN #30 tablet PRN Reason: Pain Docusate [Colace] 100 mg PO BID #30 capsule
[2016-12-11] MEDS: Ketorolac 30 MG/ML VIAL IVP PRN ×2 (16:09→23:27)
[2016-12-11] MEDS: Sennosides/Docusate Sodium TABLET PO SCH (21:18)
[2016-12-12] MEDS: Ketorolac 30 MG/ML VIAL IVP PRN (05:39)
[2016-12-12] MEDS: Sennosides/Docusate Sodium TABLET PO SCH (08:07)
[2016-12-12] MEDS: BuPROPion XL (24 HR) 150 MG TABLET PO SCH (08:08)
[2016-12-12] MEDS: *HR* OxyCODONE Immed Rel 5 MG TABLET PO PRN (08:20)
--- NOTE | 2016-12-12 11:46 | Internal Med Progress Note ---
Date of Encounter: 12/12/16 Time of Encounter: 11:44 - Assessment and plan (1) Headache Current Visit: Yes Status: Acute Qualifiers: Headache type: tension-type Headache chronicity pattern: acute headache Intractability: intractable Qualified Code(s): G44.201 - Tension-type headache , unspecified, intractable (2) Gallbladder sludge Current Visit: Yes Status: Acute (3) Abnormal liver function tests Current Visit: Yes Status: Acute (4) Hypothyroidism Current Visit: Yes Status: Chronic Qualifiers: Hypothyroidism type: postoperative Qualified Code(s): E89.0 - Postprocedural hypothyroidism (5) Obesity Current Visit: Yes Status: Chronic Qualifiers: Obesity type: due to excess calories Obesity severity: morbid Qualified Code(s): E66.01 - Morbid (severe) obesity due to excess calories (6) Lumbar disc disease Current Visit: Yes Status: Chronic (7) Chronic back pain Current Visit: Yes Status: Chronic Qualifiers: Back pain location: low back pain Back pain laterality: bilateral Sciatica presence: without sciatica Qualified Code(s): M54.5 - Low back pain; G89.29 - Other chronic pain - Subjective Interval history: Reports severe throbbing headache, she did not sleep well last night; no nausea , vomiting, abdominal pain, no flatus/bowel movements yet; some soreness around her epigastric laparoscopy site; - Constitutional Vitals: Temp Pulse Resp BP Pulse Ox 99.4 F 74 17 107/69 93 12/12/16 11:05 12/12/16 11:05 12/12/16 11:05 12/12/16 11:05 12/12/16 11:05 General appearance: Present: mild distress (noted to be sleeping, but reports throbbing headache upon my entrance), A&O X 3, answers questions appropriately - Respiratory Respiratory exam: Present: CTAB. Absent: accessory muscle use, rales, rhonchi, wheezes - Cardiovascular Cardiovascular exam: Present: RRR, +S1, +S2. Absent: diastolic murmur, gallop, rubs, systolic murmur - GI/Abdominal GI/Abdominal exam: Present: normal bowel sounds, soft (obese), no peritoneal signs. Absent: distended, tenderness Additional comments: laparoscopy sites healing well, no e/o infection - Extremities Exam Extremities exam: Present: full ROM, pedal edema (trace pedal edema B/L), warm, radial pulses palpable and symetrical. Absent: calf tenderness, cyanotic - Neurological Exam Neurological exam: Present: CN II-XII intact, oriented X3, no focal deficits. Absent: pronater drift, facial droop, speech deficit Internal Medicine: Result - Labs CBC & Chem 7: 12/11/16 08:01 12/11/16 08:01 - ABG Interpretation ABG results: PT/INR, D-dimer PT 12.4 Seconds (9.4-12.1) H 12/06/16 16:45 - VTE Documentation of Mechanical Device: Intermittent pneumatic compression device Consult Discharge Plan - Plan Additional Instructions: Surgical discharge instructions: 1 may shower, no tub bath for 2 weeks #2 wash incisions with soap and water and pat dry daily #3 no lifting, pushing, pulling more than 15 pounds for the next 2 weeks #4 no driving until off narcotics for 24 hours and able to safely react in the car #5 may climb stairs Referrals: Stephanie Radford CNP [Advanced Practice Nurse] - 12/26/16 9:15 am (Surgery follow-up) Juana Toro MD [Primary Care Provider] - Prescriptions: Ondansetron ODT [Zofran ODT] 4 mg SL Q6HR PRN #30 tab.rapdis PRN Reason: Nausea And Vomiting OxyCODONE/APAP 5/325 [Percocet 5/325 MG] 1 each PO Q6HR PRN #30 tablet PRN Reason: Pain Docusate [Colace] 100 mg PO BID #30 capsule
[2016-12-12] MEDS: Gabapentin 400 MG CAPSULE PO PRN (12:36)
[2016-12-12 15:26] VITALS: BP 133/85
--- NOTE | 2016-12-12 16:40 | Discharge Summary ---
Date of Encounter: 12/12/16 Time of Encounter: 12:00 - Discharge Diagnosis (1) S/P cholecystectomy Priority: Primary Status: Acute (2) Headache Priority: Primary Status: Acute Qualifiers: Headache type: tension-type Headache chronicity pattern: acute headache Intractability: not intractable Qualified Code(s): G44.209 - Tension-type headache, unspecified, not intractable (3) Gallbladder sludge Priority: Primary Status: Acute (4) Abnormal liver function tests Priority: Primary Status: Resolved (5) Hypothyroidism Priority: Secondary Status: Chronic Qualifiers: Hypothyroidism type: postoperative Qualified Code(s): E89.0 - Postprocedural hypothyroidism (6) Obesity Priority: Secondary Status: Chronic Qualifiers: Obesity type: due to excess calories Obesity severity: morbid Qualified Code(s): E66.01 - Morbid (severe) obesity due to excess calories (7) Lumbar disc disease Priority: Secondary Status: Chronic (8) Chronic back pain Priority: Secondary Status: Chronic Qualifiers: Back pain location: low back pain Back pain laterality: bilateral Sciatica presence: without sciatica Qualified Code(s): M54.5 - Low back pain; G89.29 - Other chronic pain - Discharge Medications Prescriptions: Ondansetron ODT [Zofran ODT] 4 mg SL Q6HR PRN #30 tab.rapdis PRN Reason: Nausea And Vomiting OxyCODONE/APAP 5/325 [Percocet 5/325 MG] 1 each PO Q6HR PRN #30 tablet PRN Reason: Pain Docusate [Colace] 100 mg PO BID #30 capsule Oxycodone HCl/Acetaminophen [Percocet 5-325 mg Tablet] 1 each PO Q6H PRN #15 tablet PRN Reason: Pain Sennosides/Docusate Sodium [Senna Plus] 1 each PO BID #20 tablet Home Medications: BuPROPion XL (24 HR) [Wellbutrin Xl] 150 mg PO DAILY 12/06/16 [History] Cyclobenzaprine HCl 5 mg PO TID PRN 12/06/16 [History] Diclofenac Sodium [Voltaren] 1 appl TP QID PRN 12/06/16 [History] Gabapentin [Neurontin] 1,200 mg PO QID PRN 12/06/16 [History] Levothyroxine [Synthroid] 150 mcg PO QAM 12/06/16 [History] Zolpidem Tartrate [Ambien Cr] 12.5 mg PO HS 12/06/16 [History] Docusate [Colace] 100 mg PO BID #30 capsule 12/11/16 [Rx] Ondansetron ODT [Zofran ODT] 4 mg SL Q6HR PRN #30 tab.rapdis 12/11/16 [Rx] OxyCODONE/APAP 5/325 [Percocet 5/325 MG] 1 each PO Q6HR PRN #30 tablet 12/11/16 [Rx] Oxycodone HCl/Acetaminophen [Percocet 5-325 mg Tablet] 1 each PO Q6H PRN #15 tablet 12/12/16 [Rx] Sennosides/Docusate Sodium [Senna Plus] 1 each PO BID #20 tablet 12/12/16 [Rx] Allergies/Adverse Reactions: Allergies hydrocodone Adverse Reaction (Verified 04/27/15 12:22) Vomiting Procedures/tests Complete & Pending: Procedures Performed prior 72 hours Category Date Time Status CT head/brain wo con [CT] Routine Cat Scan 12/12/16 11:47 Completed Date of admission: 12/06/16 21:36 Primary care physician: Juana Toro, Consults: 12/08/16 14:18 Consult to Gastroenterology [CONS] Routine Consulting Provider: [facility]enter[facility] [place] Reason for Consult: Elevated transaminases, RUQ tenderness, RLQ tenderness. Pt has had multiple tests done over the last month without any acute findings. No leukocytosis or fevers. 10/10 pain, anorexia. Call Completed: No 12/08/16 15:12 Consult to Surgery [CONS] Routine Consulting Provider: [facility] [place] [facility] Reason for Consult: Elevated transaminaes, fever, on Zosyn, blood cultures pending. RUQ tender, RLQ tender, anorexia, RLQ intractable pain. Pt had HIDA scan in October, negative for cholecystitis. Abd CT 12/06 negative other than 3cm L ovarian cyst and moderate hepatomegaly. RUQ US in October showed fatty liver. No leukocytosis or n/v. Call Completed: Yes 12/08/16 15:51 Consult to Physician [CONS] Routine Consulting Provider: Philip Trevino Reason for Consult: elevated liver enzymes Call Completed: Yes 12/12/16 08:13 Consult to Physical Therapy [CONS] Routine Comment: Evaluate, develop and implement POC Reason for Consult: Prolonged hospitalization, postop s/p lap janet Discharging clinician: Mercedes Valencia Anticipated date of discharge: 12/12/16 - Patient Status Disposition: Home, Self-Care Condition: Fair Functional capacity at discharge: independent ambulation Overall status at discharge: patient is progressing back to baseline - Discharge Instructions Instructions: Laparoscopic Cholecystectomy (DC) Follow Up With: Stephanie Radford CNP [Advanced Practice Nurse] - 12/26/16 9:15 am (Surgery follow-up) Juana Toro MD [Primary Care Provider] - 12/16/16 11:40 am Additional Instructions: Surgical discharge instructions: 1 may shower, no tub bath for 2 weeks #2 wash incisions with soap and water and pat dry daily #3 no lifting, pushing, pulling more than 15 pounds for the next 2 weeks #4 no driving until off narcotics for 24 hours and able to safely react in the car #5 may climb stairs - Diet and Activity Activity: resume usual activities as tolerated Diet: advance to your usual diet, low fat, low cholesterol Hospital course: Ms. Drake is a 46 year old female with the above medical problems who was admitted with right lower quadrant abdominal pain. Biochemical and imaging studies were not classic for acute or chronic cholecystitis or pancreatitis. However, patient continued to have significant abdominal pain and had a prolonged hospitalization for pain control. Surgery was consulted and patient subsequently underwent laparoscopic cholecystectomy in an attempt to control her symptoms. Her abdominal pain was significantly improved since surgery and she was able to tolerate oral diet. However, she reported severe throbbing headache, which somewhat responded to IV Toradol. CT head showed no acute abnormality/bleed. Patient remains hemodynamically stable, blood cultures remain negative and is medically stable for discharge with outpatient follow-up. - Time Spent with Patient Total time spent providing and/or coordinating discharge services: Greater than 30 minutes (45 min) - Constitutional Vitals: Temp Pulse Resp BP Pulse Ox 97.9 F 82 16 133/85 93 12/12/16 15:24 12/12/16 15:24 12/12/16 15:24 12/12/16 15:24 12/12/16 15:24 General appearance: Present: A&O X 3, answers questions appropriately - Respiratory Respiratory exam: Present: CTAB. Absent: accessory muscle use, rales, rhonchi, wheezes - Cardiovascular Cardiovascular exam: Present: RRR, +S1, +S2. Absent: diastolic murmur, gallop, rubs, systolic murmur - VTE Documentation of Mechanical Device: Intermittent pneumatic compression device
== END 2016-12-12 18:36 | disposition home or self-care (01) ==
LOC: 3BNU 15:59 → EMEROO 15:59 → SUATTDRO 21:36 → 3BNU 21:52
PROVIDERS: ADMIT Hospitalist; ATTEND Internal Medicine